=== PATIENT | male | born 1945 | race Caucasian/White ===

== ENCOUNTER → 2020-10-15 16:27 | Outpatient (BNVA) | payer OTHER, SELFPAY | PROVIDERS: Family Provider Family Medicine; PCP Family Medicine | DX: R05 Cough (principal); J40 Bronchitis, not specified as acute or chronic | CPT/HCPCS: 71046 ==

== ENCOUNTER 2020-10-15 18:44 | Emergency (ER) | payer OTHER, MEDICARE, SELFPAY ==
[2020-10-15 18:48] VITALS: BP 202/78; PULSE 88; RESP 18; TEMP 37.1; O2SAT 94; BMI 28.2
--- NOTE | 2020-10-15 23:06 | ED_ITS ---
HPI - General Adult General: Chief complaint: General Medical Stated complaint: bronch Time Seen by Provider: 10/15/20 22:59 History of Present Illness: HPI narrative: Patient is a 75-year-old male who was sent here to the ED by urgent care. Patient was diagnosed with bronchitis and a mass was seen on chest x-ray in a told him to go straight to the ED to get a CT of his chest to further evaluate mass. Patient denies any chest pain, dyspnea, fever, cough, abdominal pain, nausea/vomiting. Associated symptoms: Deny chest pain, dyspnea, headache(s), nausea, rash, palpitations or vomiting Review of Systems Const: Denies: fever(s), chills or fatigue Eyes: Denies: change in vision or eye discomfort ENMT: Denies: throat pain, odynophagia, nasal discharge or nasal congestion Card: Denies: chest pain, palpitations, edema, swelling of feet/ankles, dyspnea on exertion or orthopnea Resp: Denies: dyspnea, productive cough or non-productive cough GI: Denies: abdominal pain, nausea, vomiting, diarrhea, constipation or hematochezia : Denies: flank pain, difficulty urinating, dysuria or hematuria Musc: Denies: neck pain, back pain or extremity swelling Skin/Breast: Denies: rash or new lesions Neuro: Denies: headache(s), numbness in extremities or weakness in extremities PFS ED PFSH: Social History Smoking and tobacco status: former smoker Physical Exam Const: COMMON NORMALS: no acute distress, patient oriented x3, healthy appearing and alert GENERAL APPEARANCE: cooperative and comfortable HENMT: COMMON NORMALS: normocephalic HEAD & SCALP: normocephalic MOUTH: Normal oral and palatal mucosa present THROAT: posterior oropharynx normal and uvula midline Neck/C-Spine: COMMON NORMALS: supple GENERAL: Yes normal visual inspection Resp: COMMON NORMALS: normal respiratory effort, No retractions, No use of accessory muscles and clear to auscultation bilaterally EFFORT & INSPECTION: Yes able to speak in complete sentences, No tachypneic, No respiratory distress and No labored AUSCULTATION: clear to auscultation bilaterally Cardio: COMMON NORMALS: regular rate, regular rhythm, S1 normal heart sound present, S2 normal heart sound present, No gallops present (Cardio), No clicks present (Cardio), No murmurs present (Cardio) and Peripheral pulses 2+ throughout RATE: regular rate RHYTHM: regular rhythm HEART SOUNDS: S1 normal heart sound present and S2 normal heart sound present PERIPHERAL PULSES: Peripheral pulses 2+ throughout GI: COMMON NORMALS: Normal to inspection, nondistended, normoactive bowel sounds present, Soft to palpation, non-tender and no masses PALPATION: Yes Soft to palpation : COMMON NORMALS: Yes no CVA tenderness BLADDER/KIDNEY EXAM: Yes no CVA tenderness Back/Pelvis: COMMON NORMALS: no CVA tenderness Extremity: COMMON NORMALS: normal to inspection and no pedal edema Neuro: COMMON NORMALS: patient oriented x3 and moves all extremities SENSORIUM/ORIENTATION: Yes alert Skin: GENERAL SKIN EXAM: dry skin Course Vital Signs: Vital signs: Vital Signs Temperature 98.7 F 10/15/20 18:48 Pulse Rate 76 10/16/20 02:17 Respiratory Rate 18 10/16/20 02:17 Blood Pressure 162/73 10/16/20 02:17 Pulse Oximetry 98 10/16/20 02:17 MDM - General Adult MDM Narrative: Medical decision making narrative: Patient is a 75-year-old male who was sent here to the ED by urgent care due to mediastinal mass seen on x-ray. CT of chest was recommended while here in the ED. Patient is having no current symptoms of shortness of breath, chest pain, cough, nausea/vomiting, fevers. 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 Patient was told about CT findings and an order with case management was placed for patient to be referred to ENT for further evaluation of thyroid. Patient told case management will be contacting them in the next several days to set up an appoint with ENT doctor. Return to ED precautions given. Patient understood and agree with plan. Lab Data: Attestation: I reviewed the patient's lab results. Labs: Lab Results 10/15/20 10/15/20 10/15/20 Range/Units 23:11 23:11 23:19 WBC 8.3 (4.0-10.0) 10^3/ uL RBC 5.07 (4.1-5.3) 10^6/u L Hgb 14.3 (11.7-16.6) g/dL Hct 44.1 (42.0-52.0) % MCV 87.0 (80-94) fL MCH 28.2 (28.0-34.0) pg MCHC 32.4 (30.0-36.0) g/dL RDW 14.3 (12.1-15.1) % Plt Count 451 H (130-400) 10^3/c mm MPV 9.2 (7.4-10.4) fL Neut % (Auto) 57.7 % Lymph % (Auto) 27.2 % Jennings % (Auto) 13.9 % Eos % (Auto) 0.8 % Baso % (Auto) 0.2 % Neut # (Auto) 4.80 (1.8-7.7) 10^3/u L Lymph # (Auto) 2.3 (0.8-4.8) 10^3/u L Jennings # (Auto) 1.2 H (0.2-0.9) 10^3/u L Eos # (Auto) 0.1 (0.0-0.8) 10^3/u L Baso # (Auto) 0.0 (0.0-0.1) 10^3/u L Nucleated RBC % (a uto) 0 % Nucleated RBCs # 0.0 /100WBC Sodium 140 (136-145) mmol/L Potassium 4.0 (3.5-5.1) mmol/L Chloride 103 (98-107) mmol/L Carbon Dioxide 24 (22-29) mmol/L Anion Gap 17.0 (5-19) BUN 11 (8-23) mg/dL Creatinine 0.8 (0.7-1.2) mg/dL GFR Calculation Not Reportable Glucose 60 L (65-115) mg/dL POC Glucose 51 L (70-110) mg/dL Calculated Osmolal ity 287 (285-295) mOsm/k g Calcium 9.8 (8.5-10.5) mg/dL Total Bilirubin 0.5 (0.15-1.2) mg/dL AST 36 (0-40) U/L ALT 39 (0-41) U/L Alkaline Phosphata se 60 (40-130) IU/L C-Reactive Protein 72.6 H (0.0-4.9) mg/L Total Protein 7.0 (6.6-8.7) g/dL Albumin 3.4 L (3.5-5.2) g/dL Globulin 3.6 (1.3-4.6) g/dL Procalcitonin 0.09 (0-0.5) ng/mL Imaging Data^: CT Chest: Attestation: I personally reviewed and interpreted this imaging study as follows: Radiologist's impression: [address] [address] [address] Scan Report Signed Patient: Abiel Roach Unit #: [id number] : 1945 Age/Sex: 75 / M ADM Date: 10/15/20 Loc: ER Room/Bed: Attending Dr: Ordering Provider/Ordering MD: Diego Patel Date of Service: 10/15/20 Procedure(s): CT chest w con* [id number] Accession Number(s): [id number] Report Number: [id number] PROCEDURE INFORMATION: Exam: CT Chest With Contrast; Diagnostic Exam date and time: 10/15/2020 12:20 AM Age: 75 years old Clinical indication: Abnormal findings; Abnormal radiologic exam of lung or chest; Patient HX: Abn cxr - C/O bronchitis denies cp; Additional info: Mass seen on chest xray TECHNIQUE: Imaging protocol: Diagnostic computed tomography of the chest with intravenous contrast. Radiation optimization: All CT scans at this facility use at least one of these dose optimization techniques: automated exposure control; mA and/or kV adjustment per patient size (includes targeted exams where dose is matched to clinical indication); or iterative reconstruction. 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 There is a right lobe thyroid nodule measuring up to 3.0 x 1.8 cm. The trachea is narrowed in the mediolateral dimension as it traverses the thoracic inlet due to the substernal goiter. Lungs: There is mild bilateral lung disease characterized by patchy lower lung predominant subpleural ground-glass and reticular opacity. Pleural space: Unremarkable. No pneumothorax. No pleural effusion. Heart: Heart size is normal. There is severe coronary artery calcification. There is no pericardial effusion. Pulmonary arteries: The central pulmonary arteries are unremarkable. Aorta: There is mild aortic atherosclerotic disease. Lymph nodes: There is no mediastinal or hilar lymphadenopathy. Liver: There are scattered simple cysts in the liver. Adrenals: There is marked hypertrophy of the left adrenal gland. Bones/joints: Unremarkable. No acute fracture. Soft tissues: The extrathoracic soft tissues are unremarkable. CT/CT chest w con* [id number] IMPRESSION: 1. Narrowing of the trachea at the thoracic inlet due to a substernal goiter. 2. Mild bilateral lung disease. Commonly reported imaging features of COVID-19 pneumonia are present. Other processes such as influenza pneumonia and organizing pneumonia (as can be seen with drug toxicity and connective tissue disease), can produce a similar imaging pattern. 3. 3 cm right lobe thyroid nodule. Recommend nonemergent ultrasound follow-up. 4. Additional incidental findings above. COMMENTS: Consistent with the [employer]'s Incidental Findings Committee white paper (J Am Vesta Radiol 2015): In patients aged 35 years and older with an incidental thyroid nodule equal to or greater than 1.[address], MRI or extrathyroidal US, further evaluation with dedicated thyroid US is recommended for patients with normal life expectancy and without comorbidities. For smaller nodules without suspicious features, no further evaluation or follow up is recommended. Radiation Dose CTDIVOL = (mGy): DLP = 838.52 (mGy-cm) Dictated By: Jovany Wilcox MD Signed By: Jovany Wilcox MD Signed Date/Time: 10/16/20103 DD/ 3 Discharge Plan Discharge Patient Disposition: Home Clinical Impression: Right thyroid nodule, Thyroid goiter Condition: Stable Prescriptions: No Action Unable to Assess RF: 0 azithromycin 250 mg tablet See Rx Instructions PO .COMPLEX Qty: 6 RF: 0 albuterol sulfate [ProAir HFA] 90 mcg/actuation HFA aerosol inhaler 2 puff inhalation QID PRN (Reason: shortness of breath or wheezing) Qty: 18 RF: 0 Discharge Orders: Discharge ED (Routine); Ordered 10/16/20 Ordered By: Diego Ptael Referrals: Blayne Bolivar MD [Primary Care Provider] - Discharge Diet: Regular Discharge Activity: Resume usual activity Patient Instructions: Thyroid Goiter (ED), Thyroid Nodules (ED) Activity Restrictions/Additional Instructions: Follow-up with medical provider as directed. Case management will be contacting you in the next several days to set up an appointment with ENT doctor to further evaluate thyroid goiter and nodule. Continue taking all previously prescribed medications. Return to the ER or your medical provider if condition worsens. Please read and understand discharge instructions. If any questions, please ask. Coding Level of Care Code ED Machine Loader for Chg Fwd Exam Comprehensive
[2020-10-15 23:21] VITALS: BP 173/82; PULSE 78; RESP 18; O2SAT 97
[2020-10-15 23:23] LABS: Glucose Point of Care 51 mg/dL (70-110)
--- NOTE | 2020-10-15 23:26 | CTR_ITS ---
PROCEDURE INFORMATION: Exam: CT Chest With Contrast; Diagnostic Exam date and time: 10/15/2020 12:20 AM Age: 75 years old Clinical indication: Abnormal findings; Abnormal radiologic exam of lung or chest; Patient HX: Abn cxr - C/O bronchitis denies cp; Additional info: Mass seen on chest xray TECHNIQUE: Imaging protocol: Diagnostic computed tomography of the chest with intravenous contrast. Radiation optimization: All CT scans at this facility use at least one of these dose optimization techniques: automated exposure control; mA and/or kV adjustment per patient size (includes targeted exams where dose is matched to clinical indication); or iterative reconstruction. 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 There is a right lobe thyroid nodule measuring up to 3.0 x 1.8 cm. The trachea is narrowed in the mediolateral dimension as it traverses the thoracic inlet due to the substernal goiter. Lungs: There is mild bilateral lung disease characterized by patchy lower lung predominant subpleural ground-glass and reticular opacity. Pleural space: Unremarkable. No pneumothorax. No pleural effusion. Heart: Heart size is normal. There is severe coronary artery calcification. There is no pericardial effusion. Pulmonary arteries: The central pulmonary arteries are unremarkable. Aorta: There is mild aortic atherosclerotic disease. Lymph nodes: There is no mediastinal or hilar lymphadenopathy. Liver: There are scattered simple cysts in the liver. Adrenals: There is marked hypertrophy of the left adrenal gland. Bones/joints: Unremarkable. No acute fracture. Soft tissues: The extrathoracic soft tissues are unremarkable. CT/CT chest w con* [id number] IMPRESSION: 1. Narrowing of the trachea at the thoracic inlet due to a substernal goiter. 2. Mild bilateral lung disease. Commonly reported imaging features of COVID-19 pneumonia are present. Other processes such as influenza pneumonia and organizing pneumonia (as can be seen with drug toxicity and connective tissue disease), can produce a similar imaging pattern. 3. 3 cm right lobe thyroid nodule. Recommend nonemergent ultrasound follow-up. 4. Additional incidental findings above. COMMENTS: Consistent with the [employer]'s Incidental Findings Committee white paper (J Am Vesta Radiol 2015): In patients aged 35 years and older with an incidental thyroid nodule equal to or greater than 1.[address], MRI or extrathyroidal US, further evaluation with dedicated thyroid US is recommended for patients with normal life expectancy and without comorbidities. For smaller nodules without suspicious features, no further evaluation or follow up is recommended. Radiation Dose CTDIVOL = (mGy): DLP = 838.52 (mGy-cm)
[2020-10-15 23:37] LABS: Basophils % 0.2 %; Eosinophils # 0.1 10^3/uL (0.0-0.8); Eosinophils % 0.8 %; Hematocrit 44.1 % (42.0-52.0); Hemoglobin 14.3 g/dL (11.7-16.6); Lymphocytes # 2.3 10^3/uL (0.8-4.8); Lymphocytes % 27.2 %; Mean Corpuscular HGB Conc 32.4 g/dL (30.0-36.0); Mean Corpuscular Hemoglobin 28.2 pg (28.0-34.0); Mean Platelet Volume 9.2 fL (7.4-10.4); Monocytes # 1.2 10^3/uL (0.2-0.9); Monocytes % 13.9 %; Neutrophils % 57.7 %; Nucleated Red Blood Cells % 0 %; Platelet Count 451 10^3/cmm (130-400); Red Blood Count 5.07 10^6/uL (4.1-5.3); Red Cell Distribution Width 14.3 % (12.1-15.1); White Blood Count 8.3 10^3/uL (4.0-10.0)
[2020-10-16 00:12] LABS: Procalcitonin 0.09 ng/mL (0-0.5)
[2020-10-16 00:23] LABS: Alanine Aminotransferase 39 U/L (0-41); Albumin Level 3.4 g/dL (3.5-5.2); Alkaline Phosphatase 60 IU/L (40-130); Aspartate Amino Transferase 36 U/L (0-40); Blood Urea Nitrogen 11 mg/dL (8-23); C Reactive Protein 72.6 mg/L (0.0-4.9); Calcium 9.8 mg/dL (8.5-10.5); Carbon Dioxide 24 mmol/L (22-29); Chloride 103 mmol/L (98-107); Globulin 3.6 g/dL (1.3-4.6); Glucose 60 mg/dL (65-115); Osmolality Calculated 287 mOsm/kg (285-295); Sodium 140 mmol/L (136-145); Total Bilirubin 0.5 mg/dL (0.15-1.2)
[2020-10-16] MEDS: iohexol 300 mg/mL 100 mL Btl IV (00:34)
[2020-10-16 02:14] VITALS: BP 162/73; PULSE 76; RESP 18; O2SAT 98
[2020-10-16 02:17] VITALS: BP 162/73; PULSE 76; RESP 18; O2SAT 98
--- NOTE | 2020-10-16 12:12 | DCPLANNER ---
accredited farm manager had message to schedule a follow up appointment for patient with ENT. Case manage emailed both Jessy and Susie at [facility] General Surgery, patients information. Patients information will be printed and reviewed. Clinic will call patient with appointment information. Patient has [facility] insurance, emailed [facility] with [facility] to let her know that patient was seen in the ER and that patient needed a referral to ENT.
--- NOTE | 2020-11-10 08:33 | DCPLANNER ---
aviation program manager was notified that the ENT clinic can not see [facility] patients at this time. aviation program manager tried to contact patient about this and was unable to reach patient at this time.
== END 2020-10-16 02:19 | disposition home or self-care (01) ==
PROVIDERS: Family Medicine; Emergency Provider Physician Assistant; PCP Family Medicine
DX: E04.9 Nontoxic goiter, unspecified (principal); E04.1 Nontoxic single thyroid nodule; Z87.891 Personal history of nicotine dependence
CPT/HCPCS: 12345; 36416; 71260; 80053; 82962; 84145; 85025; 86140; 99282; 99283; Q9967

== ENCOUNTER → 2021-01-19 12:15 | Outpatient (BNVA) | payer OTHER, MEDICARE, SELFPAY | PROVIDERS: PCP Family Medicine; Visit Provider Specialist | DX: Z20.828 Contact with and (suspected) exposure to other viral communicable diseases (principal) | CPT/HCPCS: 87635 ==

== ENCOUNTER 2021-04-17 10:18 | Outpatient (CLI) | payer OTHER, SELFPAY ==
--- NOTE | 2021-04-17 10:20 | CT_ITS ---
WS: [id number] CT ABDOMEN PELVIS TECHNIQUE: Noncontrast CT of the abdomen and contrast-enhanced CT of the abdomen and pelvis with yonathan nal and sagittal reformatted images. CLINICAL INFORMATION: FOLLOW UP LEFT ADDRENAL ENLARGEMENT COMPARISON: CT March 2017 DLP: 2252.[address] scans at [facility] use at least one of these dose optimization techniques: automat ed exposure control; mA and/or kV adjustment per patient size (includes targeted exams where dose is matched to clinical indication); or iterative reconstruction. FINDINGS: Diffuse fatty infiltration liver. Again seen are multiple hepatic cysts similar in appearance to 2017 . Mild hepatomegaly. Normal portal vein and splenic vein. Mild fatty atrophy of the pancreas. Slight nodularity right adrenal gland is unchanged. Again seen is the left adrenal lesion measuring 2.4 cm n ot significantly changed in size compared to previous. Absolute washout is 74.8% consistent with adrenal adenoma. Relative washout is 70.4% also consistent with adrenal adenoma. Normal GE junction. Lung bases are well aerated. Normal renal parenchymal enhancement. No hydronephro sis. Aortic calcification. Normal caliber abdominal aorta. Enlarged prostate measuring 4.6 x 6.5 CM. Sigmoid diverticulosis. No evidence of acute diverticulitis . No evidence of small or large bowel obstruction. Incidental tiny fat-containing umbilical hernia. CT/CT abdomen pelvis wo/w [id number] IMPRESSION: 1. 2.4 cm low-attenuation left adrenal lesion is unchanged with washout calcul ations compatible with adrenal adenoma. 2. Diffuse fatty infiltration of the liver with mild hepatomegaly and several hepatic cysts unchanged. 3. Enlarged calcified prostate measuring 4.6 x 6.5 CM. Recommend correlation P SA. 4. Diverticulosis. No evidence of acute diverticulitis. 5. No evidence of small or large bowel obstruction. 6. Normal caliber abdominal aorta.
[2021-04-17 11:04] LABS: Blood Urea Nitrogen 15 mg/dL (8-23)
[2021-04-17] MEDS: iohexol 300 mg/mL 100 mL Btl IV (11:19)
== END 2021-04-17 10:19 | disposition home or self-care (01) ==
LOC: RADWPI 10:18
PROVIDERS: PCP Emergency Medicine Emergency Medical Services; Visit Provider Emergency Medicine Emergency Medical Services
DX: E27.8 Other specified disorders of adrenal gland (principal); K57.90 Diverticulosis of intestine, part unspecified, without perforation or abscess without bleeding; N40.0 Benign prostatic hyperplasia without lower urinary tract symptoms; K76.0 Fatty (change of) liver, not elsewhere classified
CPT/HCPCS: 74178; 82565; 84520; Q9967

== ENCOUNTER 2021-05-18 08:11 | Outpatient (CLI) | payer OTHER, SELFPAY ==
--- NOTE | 2021-05-18 08:21 | CT_ITS ---
WS: [id number] CT NECK TECHNIQUE: Contrast-enhanced CT of the neck with coronal and sagittal reformatted images. CLINICAL INFORMATION: NONTOXIC MULTINODULAR GOITER COMPARISON: None. DLP: 1441.[address] scans at [facility] use at least one of these dose optimization techniques: automat ed exposure control; mA and/or kV adjustment per patient size (includes targeted exams where dose is matched to clinical indication); or iterative reconstruction. FINDINGS: Heterogeneous multinodular enlarged thyroid worse involving the right thyroid lobe. Heterogeneously e nhancing nodules largest in the lower pole right thyroid measuring approximately 6.8 x 4.2 cm extendi ng into the upper mediastinum. Mastoid air cells well aerated. Paranasal sinuses are well aerated. Parotid glands are normal. Normal submandibular glands. Normal parapharyngeal fat. No cervical lymphadenopathy. Moderate spondylitic changes cervical spine with anterior hypertrophic changes and ankylosis. Disc os teophyte complexes throughout the cervical spine. Slight anterolisthesis C3 on C4. Lung apices are we ll aerated. CT/CT neck w con* [id number] IMPRESSION: 1. Multinodular enlarged heterogeneous thyroid with lobulated right thyroid lo be. This is stable in appearance since the chest CT October 16, 2020 2. Largest nodule in the right inferior pole extending into the upper mediasti num measuring 4.2 x 4.5 CM. 3. No cervical lymphadenopathy. 4. Salivary glands are normal in appearance. 5. No evidence of supraglottic or glottic mass. 6. Paranasal sinuses and mastoid air cells are well aerated. 7. Moderate spondylitic changes cervical spine with ankylosis and hypertrophic changes.
[2021-05-18] MEDS: iohexol 300 mg/mL 100 mL Btl IV (08:37)
== END 2021-05-18 08:12 | disposition home or self-care (01) ==
PROVIDERS: PCP Emergency Medicine Emergency Medical Services; Visit Provider Specialist
DX: E04.2 Nontoxic multinodular goiter (principal); J39.8 Other specified diseases of upper respiratory tract
CPT/HCPCS: 70491; Q9967

== ENCOUNTER 2023-01-10 14:40 | Outpatient (CLI) | payer OTHER, SELFPAY ==
--- NOTE | 2023-01-10 14:59 | CT_ITS ---
WS: [id number] CT NECK TECHNIQUE: Contrast-enhanced CT of the neck with coronal and sagittal reformatted images. CLINICAL INFORMATION: NONTOXIC MULTINODULAR GOITER COMPARISON: CT neck May 18, 2021 DLP: 296.[address] scans at [facility] use at least one of these dose optimization techniques: automated e xposure control; mA and/or kV adjustment per patient size (includes targeted exams where dose is matc hed to clinical indication); or iterative reconstruction. FINDINGS: Heterogeneous multinodular enlarged thyroid worse involving the right thyroid lobe similar to 2020. H eterogeneously enhancing multinodular RIGHT lobe measuring approximately 4.3 x 4.5 x 7.2 cm extending into the upper mediastinum. This measures a few millimeters larger today. This appears slightly prog ressed compared to previous with mass effect on the trachea RIGHT to LEFT at the thoracic inlet simil ar in appearance. LEFT thyroid lobe appears stable. Incidental aberrant RIGHT subclavian artery. Normal posterior nasopharynx. Normal parapharyngeal fat. No evidence of supraglottic or glottic mass. Mastoid air cells well aerated. Paranasal sinuses are well aerated. Parotid glands are normal. Jennifer l submandibular glands. No cervical lymphadenopathy. Moderate spondylitic changes cervical spine with anterior hypertrophic changes and ankylosis. Disc os teophyte complexes throughout the cervical spine. Slight anterolisthesis C3 on C4. Lung apices are we ll aerated. CT/CT neck w con* [id number] IMPRESSION: 1. Multinodular enlarged heterogeneous thyroid with lobulated right thyroid lob e. This is slightly progressed compared to previous with stable RIGHT to LEFT m ass effect on the trachea at the thoracic inlet 3. No cervical lymphadenopathy. 4. Salivary glands are normal in appearance. 5. No evidence of supraglottic or glottic mass 6. Incidental aberrant RIGHT subclavian artery.
[2023-01-10] MEDS: iohexol 350 mg/mL 500 mL Btl (per mL) IV (15:19)
[2023-01-10 15:43] LABS: Blood Urea Nitrogen 13 mg/dL (8-23)
== END 2023-01-10 14:41 | disposition home or self-care (01) ==
PROVIDERS: PCP Emergency Medicine Emergency Medical Services; Visit Provider Specialist
DX: E04.2 Nontoxic multinodular goiter (principal); Q27.8 Other specified congenital malformations of peripheral vascular system
CPT/HCPCS: 70491; 82565; 84520; Q9967

== ENCOUNTER → 2023-10-31 08:39 | Outpatient (BNVA) | payer OTHER, SELFPAY | PROVIDERS: PCP Emergency Medicine Emergency Medical Services; Visit Provider Podiatrist Foot & Ankle Surgery | DX: E11.42 Type 2 diabetes mellitus with diabetic polyneuropathy (principal); B35.1 Tinea unguium; M25.471 Effusion, right ankle; M25.472 Effusion, left ankle | CPT/HCPCS: 11721; 99203 ==

== ENCOUNTER → 2024-01-26 09:36 | Outpatient (BNVA) | payer OTHER, SELFPAY | PROVIDERS: PCP Emergency Medicine Emergency Medical Services; Visit Provider Podiatrist Foot & Ankle Surgery | DX: B35.1 Tinea unguium (principal); E11.42 Type 2 diabetes mellitus with diabetic polyneuropathy; M25.471 Effusion, right ankle; M25.472 Effusion, left ankle | CPT/HCPCS: 11721 ==

== ENCOUNTER → 2024-04-05 10:34 | Outpatient (BNVA) | payer OTHER, SELFPAY | PROVIDERS: PCP Nurse Practitioner Family; Visit Provider Podiatrist Foot & Ankle Surgery | DX: B35.1 Tinea unguium (principal); E11.42 Type 2 diabetes mellitus with diabetic polyneuropathy; M25.471 Effusion, right ankle; M25.472 Effusion, left ankle | CPT/HCPCS: 11721 ==

== ENCOUNTER → 2024-06-01 13:20 | Outpatient (BNVA) | payer OTHER, SELFPAY | PROVIDERS: PCP Nurse Practitioner Family; Referring Provider Nurse Practitioner Family; Visit Provider Internal Medicine | DX: I48.91 Unspecified atrial fibrillation (principal); I45.9 Conduction disorder, unspecified; R07.9 Chest pain, unspecified; I10 Essential (primary) hypertension; E11.9 Type 2 diabetes mellitus without complications; Z87.891 Personal history of nicotine dependence | CPT/HCPCS: 93005; 99204 ==

== ENCOUNTER → 2024-06-07 10:05 | Outpatient (BNVA) | payer OTHER, SELFPAY | PROVIDERS: PCP Nurse Practitioner Family; Visit Provider Podiatrist Foot & Ankle Surgery | DX: B35.1 Tinea unguium (principal); E11.42 Type 2 diabetes mellitus with diabetic polyneuropathy; M25.471 Effusion, right ankle; M25.472 Effusion, left ankle; Z79.4 Long term (current) use of insulin | CPT/HCPCS: 11721 ==

== ENCOUNTER → 2024-08-09 10:42 | Outpatient (BNVA) | payer OTHER, SELFPAY | PROVIDERS: PCP Nurse Practitioner Family; Visit Provider Podiatrist Foot & Ankle Surgery | DX: B35.1 Tinea unguium (principal); E11.42 Type 2 diabetes mellitus with diabetic polyneuropathy; M25.471 Effusion, right ankle; M25.472 Effusion, left ankle; Z79.4 Long term (current) use of insulin | CPT/HCPCS: 11721 ==

== ENCOUNTER → 2024-10-21 10:45 | Outpatient (BNVA) | payer OTHER, SELFPAY | PROVIDERS: PCP Nurse Practitioner Family; Visit Provider Podiatrist Foot & Ankle Surgery | DX: B35.1 Tinea unguium (principal); E11.42 Type 2 diabetes mellitus with diabetic polyneuropathy; M25.471 Effusion, right ankle; M25.472 Effusion, left ankle; Z79.4 Long term (current) use of insulin | CPT/HCPCS: 11721 ==

== ENCOUNTER → 2024-12-06 15:00 | Outpatient (BNVA) | payer OTHER, SELFPAY | PROVIDERS: PCP Nurse Practitioner Family; Visit Provider Internal Medicine | DX: I48.91 Unspecified atrial fibrillation (principal); I10 Essential (primary) hypertension; E11.9 Type 2 diabetes mellitus without complications; Z79.01 Long term (current) use of anticoagulants; Z87.891 Personal history of nicotine dependence; Z79.4 Long term (current) use of insulin | CPT/HCPCS: 99213 ==

== ENCOUNTER → 2024-12-23 11:03 | Outpatient (BNVA) | payer OTHER, SELFPAY | PROVIDERS: PCP Nurse Practitioner Family; Visit Provider Podiatrist Foot & Ankle Surgery | DX: E11.42 Type 2 diabetes mellitus with diabetic polyneuropathy (principal); B35.1 Tinea unguium; I73.9 Peripheral vascular disease, unspecified; E11.8 Type 2 diabetes mellitus with unspecified complications; M25.471 Effusion, right ankle; M25.472 Effusion, left ankle; Z79.4 Long term (current) use of insulin | CPT/HCPCS: 11721; 99213 ==

== ENCOUNTER 2024-12-26 17:25 | Inpatient (IN) | payer OTHER, MEDICARE, SELFPAY ==
[2024-12-26] VITALS (8 sets, daily range): BP systolic 139–177; BP diastolic 71–105; PULSE 97–118; RESP 17–30; TEMP 36.9–38.2; O2SAT 90–97; BMI 28.5
--- NOTE | 2024-12-26 17:31 | XRR_ITS ---
PROCEDURE INFORMATION: Exam: XR Chest Exam date and time: 12/26/2024 5:54 PM Age: 79 years old Clinical indication: Other: Weakness TECHNIQUE: Imaging protocol: Radiologic exam of the chest. Views: 1 view. COMPARISON: CT chest w con* [id number] 10/16/2020 12:24 AM FINDINGS: Lungs: Unremarkable. No consolidation. Pleural spaces: Unremarkable. No pleural effusion. No pneumothorax. Heart/Mediastinum: Unremarkable. No cardiomegaly. Vasculature: Atherosclerotic aortic calcifications. Diaphragm: Asymmetric elevation of the left hemidiaphragm. Bones/joints: Unremarkable. XR/XR chest 1V portable [id number] IMPRESSION: No acute cardiopulmonary findings.
[2024-12-26 17:42] LABS: ABG PH Result 7.43 (7.35-7.45); Alveolar-Arterial Oxygen Gradi 4.9 mmHg (5-10); Arterial Blood Gas Hematocrit 42.1 % (42-52); Base Excess ABG 0.6 mmol/L (-2.0-2.0); Blood Gas Allen Test Pos; Blood Gas Operator Identificat WALCI; Blood Gas Sample Site Radial, left; Blood Gas Sample Type Arterial; HCO3 ABG 24.6 mmol/L (22-26); HGB O2 Sat 91.9 % (95-100); Ionized Calcium Level - ABG 1.3 mmol/L (1.1-1.4); Methemoglobin 1.1 % (0.4-1.5); Oxygen Device ROOM AIR; Oxygen Saturation ABG 93.9; PO2 ABG 65.5 mmHg (80.0-100.0); PO2 FiO2 Ratio Arterial Blood 311; Potassium Level - ABG 4.3 mmol/L (3.5-5.0); Total Hemoglobin 13.8 g/dL (14-18)
--- NOTE | 2024-12-26 17:49 | ECG_ITS ---
[facility] 2024-12[facility]26 Pat Name: Abiel Roach Department: Room: Gender: Male Administrative Office Manager: : 1945 Requested By: Anya Apple Order Number: [id number] Gonzales MD: SYLVESTER FRIEND Measurements Intervals Mcdaniel Rate: 111 P: 0 SD: 0 QRS: 32 QRSD: 105 T: 70 QT: 314 QTc: 428 Interpretive Statements ATRIAL FIBRILLATION WITH RAPID VENTRICULAR RESPONSE INDETERMINATE AXIS LOW QRS VOLTAGE IN EXTREMITY LEADS [QRS DEFLECTION < 0.5 mV IN LIMB LEADS] ABNORMAL RHYTHM ECG Compared to ECG 06/01/2024 13:27:49 Indeterminate axis now present Low QRS voltage now present Intraventricular conduction delay no longer present Electronically Signed On 12-27-2024 18:08:20 CDT by SYLVESTER FRIEND [email or web address]
[2024-12-26 18:09] LABS: Basophils % 0.4 %; Eosinophils # 0.1 10^3/uL (0.0-0.8); Eosinophils % 0.8 %; Hematocrit 42.1 % (37-53); Lymphocytes # 0.5 10^3/uL (0.8-4.8); Lymphocytes % 4.7 %; Mean Corpuscular Hemoglobin 28.8 pg (27-33); Mean Corpuscular Volume 87.2 fl (82-101); Mean Platelet Volume 9.5 fL (7.4-10.4); Monocytes # 1.1 10^3/uL (0.2-0.9); Monocytes % 9.4 %; Neutrophils # 9.58 10^3/uL (1.8-7.7); Neutrophils % 84.4 %; Nucleated Red Blood Cells % 0 %; Platelet Count 276 10^3/cmm (157-399); Red Blood Count 4.83 10^6/uL (3.85-5.65); Red Cell Distribution Width 14.5 % (12.1-15.1); White Blood Count 11.34 10^3/uL (3.29-11.43)
[2024-12-26 18:27] LABS: Lactic Sepsis W/Reflex 1.6 mmol/L (0.5-2.2)
[2024-12-26 18:28] LABS: Troponin(5th) Baseline 48 ng/L (0-15)
[2024-12-26 18:38] LABS: NT Pro B Type Natriuretic Pept 879 pg/mL (0-450); Procalcitonin 0.32 ng/mL (0-0.5)
[2024-12-26 18:49] LABS: Alanine Aminotransferase 20 U/L (0-41); Albumin Level 4.3 g/dL (3.5-5.2); Alkaline Phosphatase 64 U/L (40-130); Blood Urea Nitrogen 28 mg/dL (8-23); C Reactive Protein 70.1 mg/L (0.0-4.9); Calcium 9.9 mg/dL (8.5-10.5); Carbon Dioxide 22 mmol/L (22-29); Chloride 96 mmol/L (98-107); Creatinine Clr Calc Pharmacy 51.2337; Globulin 2.3 g/dL (1.3-4.6); Glucose 173 mg/dL (65-115); Osmolality Calculated 284 mOsm/kg (285-295); Sodium 132 mmol/L (136-145); Total Bilirubin 0.6 mg/dL (0.15-1.2); Total Protein 6.6 g/dL (6.6-8.7)
[2024-12-26 19:03] LABS: Anion Gap 18.9 (5-19); Aspartate Amino Transferase 29 U/L (0-40); Creatine Phosphokinase 853 U/L (39-308); Potassium 4.9 mmol/L (3.5-5.1)
[2024-12-26 19:07] LABS: Influenza A NEGATIVE (Negative); Influenza B NEGATIVE (Negative); Respiratory Syncytial Virus Ce NEGATIVE (Negative)
[2024-12-26 19:14] LABS: SARS-CoV-2 PCR Positive (Negative)
[2024-12-26] MEDS: sodium chloride 0.9% 1,000 ML 999 ML IV (19:15)
[2024-12-26 19:16] LABS: Bilirubin Urine Negative (Negative); Blood Urine 2+ (Negative); Glucose Urine UA Negative (Normal); Ketones Urine 1+ (Negative); Leukocyte Esterase Urine Negative (Negative); Nitrate Urine Negative (Negative); Protein Urine 3+ (Negative); Specific Gravity, Urine 1.016 (1.005-1.030); Urine Appearance Clear (CLEAR); Urine Color Yellow (Yellow); Urobilinogen Urine 0.2 mg/dL (Negative)
--- NOTE | 2024-12-26 19:17 | W.ED.WEAKNES ---
HPI - Weakness General: Chief complaint: Weakness Stated complaint: weakness; fall Time Seen by Provider: 12/26/24 17:27 History of Present Illness: 79-year-old man with a history of hypertension and diabetes who presents to the emergency room with weakness and a fall. He is had some cough. Generalized weakness with no focal deficits. Apparently he fell down. He fell backwards. He has no pain at this time. Did not hit his head. He is on Eliquis. Review of Systems Narrative: Constitutional symptoms: Negative except as documented in HPI. Skin symptoms: Negative except as documented in HPI. Eye symptoms: Negative except as documented in HPI. ENMT symptoms: Negative except as documented in HPI. Respiratory symptoms: Negative except as documented in HPI. Cardiovascular symptoms: Negative except as documented in HPI. Gastrointestinal symptoms: Negative except as documented in HPI. Genitourinary symptoms: Negative except as documented in HPI. Musculoskeletal symptoms: Negative except as documented in HPI. Neurologic symptoms: Negative except as documented in HPI. Psychiatric symptoms: Negative except as documented in HPI. Endocrine symptoms: Negative except as documented in HPI. PFS ED PFSH: Medical History Hypertension Diabetes mellitus Social History Smoking and tobacco/nicotine status: former use of tobacco/nicotine Physical Exam Narrative: EXAM NARRATIVE: General: Alert, no acute distress. Skin: Warm, dry. Head: Normocephalic, atraumatic. Neck: Supple, trachea midline. Eye: Extraocular movements are intact. Ears, nose, mouth and throat: Tacky oral mucosa Cardiovascular: Regular, Normal peripheral perfusion. Respiratory: Lungs are clear to auscultation, respirations are non-labored, breath sounds are equal, Symmetrical chest wall expansion. Gastrointestinal: Soft, Nontender, Non distended Musculoskeletal: Normal ROM, no deformity. Neurological: Alert and oriented, No focal neurological deficit observed. Psychiatric: Cooperative, appropriate mood & affect. Course Vital Signs: Vital signs: Vital Signs Temperature 98.9 F 12/26/24 17:28 Pulse Rate 97 12/26/24 19:16 Respiratory Rate 26 H 12/26/24 19:16 Blood Pressure 139/105 12/26/24 19:16 Pulse Oximetry 91 12/26/24 19:16 Oxygen Delivery Me thod Room Air 12/26/24 19:16 MDM - Weakness Medical Decision Making Medical decision making: Differential diagnosis for patient presenting with generalized weakness including but not limited to and based on the above HPI, review of systems and physical exam: Sepsis. Dehydration. Renal failure. Electrolyte abnormalities. Anemia. Congestive heart failure. Hypotension. Coronary syndrome. Hepatitis. Cirrhosis. Infections such as pneumonia, urinary tract infection, Tick bourne illness, Cellulitis, Viral infections including influenza and Covid-19. Workup: labwork and lab/exam driven imaging ordered to evaluate, rule in and rule out above pathologies. Chest x-ray: No acute process. No infiltrate. No pneumothorax. This was reviewed and interpreted by myself the emergency room physician. I also reviewed the radiology report. Lab Review: Laboratory results were reviewed and interpreted by myself the emergency room physician. No leukocytosis. No anemia. Patient is COVID-positive. He also has some renal insufficiency. Also some rhabdomyolysis with a CK of over 800. I reviewed the patient's medical record. Reexamination: Patient remained stable. No increased work of breathing. No altered mental status. No focal motor deficits. Assessment and plan: COVID-19 Dehydration Acute renal insufficiency Rhabdomyolysis Weakness Fall ?Normal saline bolus in the emergency room -I discussed the patient with the hospitalist on-call who is admitting the patient. - Discussed findings and plan with patient. Answered any questions. - All laboratory values were reviewed and interpreted personally by myself, the ER physician - All imaging was reviewed and interpreted personally by myself, the ER physician. - Evaluation and treatment of this problem were appropriate in the emergency setting Lab Data 12/26/24 17:43 12/26/24 17:43 Radiology Impressions Chest X-Ray 12/26/24 17:31 IMPRESSION: No acute cardiopulmonary findings. Laboratory Results WBC 11.34 10^3/uL (3.29-11.43) 12/26/24 17:43 RBC 4.83 10^6/uL (3.85-5.65) 12/26/24 17:43 Hgb 13.90 g/dL (11.27-16.99) 12/26/24 17:43 Hct 42.1 % (37-53) 12/26/24 17:43 MCV 87.2 fl (82-101) 12/26/24 17:43 MCH 28.8 pg (27-33) 12/26/24 17:43 MCHC 33.0 g/dL (30-55) 12/26/24 17:43 RDW 14.5 % (12.1-15.1) 12/26/24 17:43 Plt Count 276 10^3/cmm (157-399) 12/26/24 17:43 MPV 9.5 fL (7.4-10.4) 12/26/24 17:43 Neut % (Auto) 84.4 % 12/26/24 17:43 Lymph % (Auto) 4.7 % 12/26/24 17:43 Bureau % (Auto) 9.4 % 12/26/24 17:43 Eos % (Auto) 0.8 % 12/26/24 17:43 Baso % (Auto) 0.4 % 12/26/24 17:43 Neut # (Auto) 9.58 10^3/uL (1.8-7.7) H 12/26/24 17:43 Lymph # (Auto) 0.5 10^3/uL (0.8-4.8) L 12/26/24 17:43 Bureau # (Auto) 1.1 10^3/uL (0.2-0.9) H 12/26/24 17:43 Eos # (Auto) 0.1 10^3/uL (0.0-0.8) 12/26/24 17:43 Baso # (Auto) 0.0 10^3/uL (0.0-0.1) 12/26/24 17:43 Nucleated RBC % (auto) 0 % 12/26/24 17:43 Nucleated RBCs # 0.0 /100WBC 12/26/24 17:43 Specimen Type Arterial 12/26/24 17:31 Sample Site Radial, left 12/26/24 17:31 ABG pH 7.43 (7.35-7.45) 12/26/24 17:31 ABG pCO2 37.0 mmHg (35-45) 12/26/24 17:31 ABG pO2 65.5 mmHg (80.0-100.0) L 12/26/24 17:31 ABG PO2/FiO2 Ratio 311 12/26/24 17:31 ABG HCO3 24.6 mmol/L (22-26) 12/26/24 17:31 ABG O2 Saturation 93.9 12/26/24 17:31 ABG Base Excess 0.6 mmol/L (-2.0-2.0) 12/26/24 17:31 Berto Test Pos 12/26/24 17:31 A-a O2 Gradient 4.9 mmHg (5-10) L 12/26/24 17:31 Hematocrit 42.1 % (42-52) 12/26/24 17:31 Hgb O2 Saturation 91.9 % (95-100) L 12/26/24 17:31 Carboxyhemoglobin 1.0 %THgb (0.4-20.1) 12/26/24 17:31 Methemoglobin 1.1 % (0.4-1.5) 12/26/24 17:31 Total Hemoglobin 13.8 g/dL (14-18) L 12/26/24 17:31 Sodium 135.0 mmol/L (131-143) 12/26/24 17:31 Potassium 4.3 mmol/L (3.5-5.0) 12/26/24 17:31 Glucose 178.0 mg/dL (70-115) H 12/26/24 17:31 Ionized Calcium 1.3 mmol/L (1.1-1.4) 12/26/24 17:31 O2 Delivery Device Room air 12/26/24 17:31 FiO2 21.0 % 12/26/24 17:31 Repair Miller ID Michael 12/26/24 17:31 Sodium 132 mmol/L (136-145) L 12/26/24 17:43 Potassium 4.9 mmol/L (3.5-5.1) 12/26/24 17:43 Chloride 96 mmol/L (98-107) L 12/26/24 17:43 Carbon Dioxide 22 mmol/L (22-29) 12/26/24 17:43 Anion Gap 18.9 (5-19) 12/26/24 17:43 BUN 28 mg/dL (8-23) H 12/26/24 17:43 Creatinine 1.4 mg/dL (0.7-1.2) H 12/26/24 17:43 GFR Calculation Not Reportable 12/26/24 17:43 Glucose 173 mg/dL (65-115) H 12/26/24 17:43 Calculated Osmolality 284 mOsm/kg (285-295) L 12/26/24 17:43 Lactic Acid 1.6 mmol/L (0.5-2.2) 12/26/24 17:43 Calcium 9.9 mg/dL (8.5-10.5) 12/26/24 17:43 Total Bilirubin 0.6 mg/dL (0.15-1.2) 12/26/24 17:43 AST 29 U/L (0-40) 12/26/24 17:43 ALT 20 U/L (0-41) 12/26/24 17:43 Alkaline Phosphatase 64 U/L (40-130) 12/26/24 17:43 Creatine Kinase 853 U/L (39-308) H* 12/26/24 17:43 Troponin T Baseline 48 ng/L (0-15) H 12/26/24 17:43 C-Reactive Protein 70.1 mg/L (0.0-4.9) H 12/26/24 17:43 NT-Pro-B Natriuret Pep 879 pg/mL (0-450) H 12/26/24 17:43 Total Protein 6.6 g/dL (6.6-8.7) 12/26/24 17:43 Albumin 4.3 g/dL (3.5-5.2) 12/26/24 17:43 Globulin 2.3 g/dL (1.3-4.6) 12/26/24 17:43 Procalcitonin 0.32 ng/mL (0-0.5) 12/26/24 17:43 Amorphous Sediment Not Reportable 12/26/24 19:08 Influenza A (PCR) Negative (Negative) 12/26/24 18:16 Influenza Type B (PCR) Negative (Negative) 12/26/24 18:16 RSV (PCR) Negative (Negative) 12/26/24 18:16 SARS-CoV-2 (PCR) Positive (Negative) A 12/26/24 18:16 XR interpretation done by ED provider, pending radiology final review Discharge Plan Discharge Patient Disposition: Placed in Observation Clinical Impression: COVID-19, Rhabdomyolysis, Dehydration, Renal failure, Generalized weakness, Falls Coding Level of Care Code ED Janitor Cleaner for g Fwd Related Data Home Medications ?Medication ?Instructions ?Recorded ?Confirmed ascorbic acid (vitamin C) 1,000 mg 1 g PO DAILY 06/01/24 12/23/24 tablet cholecalciferol (vitamin D3) 50 50 mcg PO DAILY 06/01/24 12/23/24 mcg (2,000 unit) capsule diltiazem HCl 180 mg capsule,24 180 mg PO DAILY 06/01/24 12/23/24 hr,extended release furosemide 20 mg tablet (Lasix) 20 mg PO DAILY 06/01/24 12/23/24 gabapentin 100 mg capsule 100 mg PO BID 06/01/24 12/23/24 insulin glargine 100 unit/mL (3 16 unit SUBCUT QAM 06/01/24 12/23/24 mL) subcutaneous pen potassium chloride 20 mEq 20 meq PO DAILY 06/01/24 12/23/24 tablet,extended release(part/cryst) tamsulosin 0.4 mg capsule (Flomax) 0.4 mg PO DAILY 06/01/24 12/23/24 losartan 100 mg tablet 100 mg PO DAILY 06/25/24 12/23/24 Previous Rx's ?Medication ?Instructions ?Recorded albuterol sulfate 90 mcg/actuation 2 puff inhalation QID PRN 10/15/20 aerosol inhaler (ProAir HFA) shortness of breath or wheezing #18 grams Diabetic Shoes with insoles #1 ea 10/31/23 amlodipine 10 mg tablet 10 mg PO DAILY #90 tabs 07/19/24 apixaban 5 mg tablet (Eliquis) 2.5 mg (1/2 x 5 mg) PO BID #180 09/13/24 tabs Allergies Allergy/AdvReac Type Severity Reaction Status Date / Time Penicillins Allergy ALGY-Hives Verified 12/23/24 11:12 Sulfa (Sulfonamide Allergy Unknown Verified 12/23/24 11:12 Antibiotics)
[2024-12-26 19:24] LABS: Bacteria Urine None Seen /hpf; Hyaline Casts Urine 8.26 /lpf; RBC Urine 0-2 /hpf (0-2); Squamous Epithelial Cell Urine 0-5 /hpf (0-5); Universal Test for UA Present (0); WBC Urine 0-5 /hpf (0-5)
[2024-12-26 19:54] LABS: Troponin 5 2HR 40.35 ng/L (0-15)
[2024-12-26 19:57] LABS: Troponin 5 2HR Delta -7.65 ABS# (0-10)
--- NOTE | 2024-12-26 21:28 | PM.HP ---
Providers/Chief Complaint Admitting Physician: Jose E Colvin MD Primary Care Provider: Kelly Sheppard APRN Chief Complaint: weakness; fall History of Present Illness Abiel Roach is a 79 year old male with established history of hypertension, atrial fibrillation chronic anticoagulation, follows up with cardiology, presented with generalized weakness and fatigue. Patient lives alone, cooks for himself, does not use oxygen at home, has been sick for last few days today got extremely weak and lethargic fell on the floor, stayed on the floor for about 90 minutes, family checked on him and called EMS, patient was awake and alert, extremely lethargic and fatigue, in the ER workup consistent with COVID-19 pneumonia PHAM, he has received IV fluids, Currently requiring 2 L of oxygen, awake and alert NIH 0 GCS 15 Meet sepsis criteria with fever tachypnea tachycardia not a good candidate for septic bolus considering signs of fluid overload Sepsis related to COVID-19 procalcitonin unremarkable to warrant antibiotics, requested CT chest Patient has history of paratracheal fullness: Has followed up with ENT at [facility] status post biopsy, he is not sure about biopsy report: Will request records, patient is stating that it was not malignant His ENT surgeon name is Dr Gibson Review of Systems Const: Reports: fever(s) and chills Eyes: Denies: change in vision ENMT: Denies: throat pain Card: Reports: swelling of feet/ankles and dyspnea on exertion Resp: Reports: dyspnea GI: Reports: nausea Neuro: Reports: headache(s) Medications/Allergies Home Medications ?Medication ?Instructions ?Recorded ?Confirmed ?Last Taken ?Type albuterol sulfate 90 mcg/actuation 2 puff inhalation QID PRN 10/15/20 12/26/24 Unknown Rx aerosol inhaler (ProAir HFA) shortness of breath or wheezing #18 grams Diabetic Shoes with insoles #1 ea 10/31/23 12/26/24 Unknown Rx ascorbic acid (vitamin C) 1,000 mg 1 g PO DAILY 06/01/24 12/26/24 Unknown History tablet cholecalciferol (vitamin D3) 50 50 mcg PO DAILY 06/01/24 12/26/24 Unknown History mcg (2,000 unit) capsule diltiazem HCl 180 mg capsule,24 180 mg PO DAILY 06/01/24 12/26/24 Unknown History hr,extended release furosemide 20 mg tablet (Lasix) 20 mg PO DAILY 06/01/24 12/26/24 Unknown History gabapentin 100 mg capsule 100 mg PO BID 06/01/24 12/26/24 Unknown History insulin glargine 100 unit/mL (3 16 unit SUBCUT QAM 06/01/24 12/26/24 Unknown History mL) subcutaneous pen potassium chloride 20 mEq 20 meq PO DAILY 06/01/24 12/26/24 Unknown History tablet,extended release(part/cryst) tamsulosin 0.4 mg capsule (Flomax) 0.4 mg PO DAILY 06/01/24 12/26/24 Unknown History losartan 100 mg tablet 100 mg PO DAILY 06/25/24 12/26/24 Unknown History amlodipine 10 mg tablet 10 mg PO DAILY #90 tabs 07/19/24 12/26/24 Unknown Rx apixaban 5 mg tablet (Eliquis) 2.5 mg (1/2 x 5 mg) PO BID #180 09/13/24 12/26/24 Unknown Rx tabs Allergies Allergy/AdvReac Type Severity Reaction Status Date / Time hydrochlorothiazide Allergy ALGY-Rash Verified 12/26/24 21:07 metoprolol Allergy ALGY-Rash Verified 12/26/24 21:07 Penicillins Allergy ALGY-Hives Verified 12/26/24 19:45 Sulfa (Sulfonamide Allergy Unknown Verified 12/26/24 19:45 Antibiotics) PFSH Acute PFSH: Medical History (Updated 12/26/24 @ 22:21 by Jose E Colvin MD) Renal failure Hypertension Diabetes mellitus Social History Smoking and tobacco/nicotine status: former use of tobacco/nicotine Vitals/I&O/Wt Last Vital Signs Temp 100.7 F H 12/26/24 20:55 Pulse 118 H 12/26/24 20:55 Resp 30 H 12/26/24 20:55 BP 177/93 12/26/24 20:55 Pulse Ox 95 12/26/24 20:55 O2 Del Method Nasal Cannula 12/26/24 20:58 O2 Flow Rate 2 12/26/24 20:55 12/26/24 12/26/24 12/26/24 06:59 14:59 22:59 Intake Total 1000 / 1000 Balance 1000 / 1000 Weight last 48 hrs Weight 96.303 kg Weight 95.254 kg Physical Exam Narrative: Patient lying supine Currently on 2 L nasal cannula Low-grade fever Tachypnea tachycardia GCS 15 NIH 0 Low extremity trace edema Abdomen soft Bilateral breath sounds with rhonchi Nasal tone of his voice with sinusitis Endorsing fatigue and lethargy Able to answer all my question AOx4, family at the bedside Data 12/26/24 17:43 12/26/24 17:43 Micro: Microbiology 12/26/24 17:50 Blood Culture - Preliminary Blood SPECIMEN COLLECTED 12/26/24 17:43 Blood Culture - Preliminary Blood SPECIMEN COLLECTED A&P Assessment and plan (1) Hypertension: (2) Atrial fibrillation: (3) Diabetes mellitus: (4) Dehydration: (5) COVID-19: (6) Rhabdomyolysis: (7) Generalized weakness: (8) Falls: (9) Paratracheal lymphadenopathy: (10) PHAM (acute kidney injury): Plan Sepsis Criteria met with tachypnea tachycardia fever Related to COVID-19 Procalcitonin not high to warrant antibiotics at this point Requested CT chest without contrast DuoNeb, Decadron and remdesivir requested Acute hypoxia related to COVID-19: Currently on 2 L Quit smoking Paratracheal fullness status post biopsy by the ENT surgeon at [facility]: Will request records Patient does not use oxygen at home A-fib without RVR Continue Eliquis with AV nico blocking agent Patient takes low-dose Eliquis because he was experiencing epistaxis with 5 mg twice a day regimen Mild CHF exacerbation BNP is high Clinically no significant signs of fluid overload Requested echo to learn about ejection fraction: No active chest pain Mild muscle injury: Monitor CPK for now PHAM: Anticipate improvement with better hydration: Hold losartan Full code Consistent carb/cardiac diet Insulin sliding scale Requested physical therapy Patient lives alone PDMP PDMP Reviewed: Not Reviewed Attestations Medical Necessity Statement*: More than 2 midnights anticipated for management of COVID-19 related pneumonia and hypoxia Diagnoses Hypertension I10 Atrial fibrillation I48.91 Diabetes mellitus E11.9 Dehydration E86.0 COVID-19 U07.1 Rhabdomyolysis M62.82 Generalized weakness R53.1 Falls R29.6 Paratracheal lymphadenopathy R59.0 PHAM (acute kidney injury) N17.9
--- NOTE | 2024-12-26 21:48 | CTR_ITS ---
PROCEDURE INFORMATION: Exam: CT Chest Without Contrast; Diagnostic Exam date and time: 12/26/2024 10:46 PM Age: 79 years old Clinical indication: Shortness of breath; Additional info: Right paratracheal fullness TECHNIQUE: Imaging protocol: Diagnostic computed tomography of the chest without contrast. Radiation optimization: All CT scans at this facility use at least one of these dose optimization techniques: automated exposure control; mA and/or kV adjustment per patient size (includes targeted exams where dose is matched to clinical indication); or iterative reconstruction. COMPARISON: 1. CR (CHEST, ) 12/26/2024 5:[address] chest w con* [id number] 10/16/2020 12:24 AM RADIATION DOSE METRICS: Total DLP (mGy-cm): 548.47 FINDINGS: Thyroid: Mass effect on the upper trachea from an enlarged thyroid with a slit-like appearance. Small layering mucus in the lower trachea and left mainstem bronchus. Similar-appearing heterogeneous enlargement of the thyroid with multiple nodules resulting in mass-effect in the trachea. Substernal extension is again seen. The overall size and appearance has not significantly changed since 01/10/2023. Lungs: Mild central bronchial wall thickening. Scattered hypoventilatory changes throughout the lungs. No focal consolidation or generalized interstitial process. Calcified left lower lobe granuloma. Pleural spaces: Unremarkable. No pneumothorax. No pleural effusion. Heart: Unremarkable. No cardiomegaly. No pericardial effusion. Coronary arteries: Multivessel coronary artery calcifications most pronounced along the LAD. Lymph nodes: Similar mild enlargement of several mediastinal lymph nodes. For example, a right lower paratracheal node measures 1.1 cm short axis, previously 1.0 cm on 10/16/2020. A precarinal lymph node measures 1.1 cm, previously 1.2 cm. Left hilar calcified lymph nodes from prior granulomatous disease Vasculature: Moderate diffuse thoracic aortic calcifications without aneurysm. 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 Multilevel degenerative changes of the visualized spine. No acute or aggressive osseous lesion. Soft tissues: Unremarkable. CT/CT chest wo con [id number] IMPRESSION: 1. Similar multinodular goiter with heterogeneous enlargement of the thyroid resulting in mass effect on the trachea. If not performed previously, correlation with nonemergent thyroid ultrasound is recommended. 2. Mildly enlarged mediastinal lymph nodes are not significantly changed from 10/16/2020 and may be reactive. 3. Mild mucous secretions within the trachea and left mainstem bronchus. Central bronchial wall thickening.
[2024-12-26 21:52] LABS: Glucose Point of Care 110 mg/dL (70-110)
[2024-12-26 22:15] LABS: Thyroid Stimulating Hormone 0.53 uIU/mL (0.27-4.20)
--- OUTSIDE RECORDS SUMMARY | 2024-12-26 22:28 | XMS_ITS | Encounter Summary ---
Author Organization [facility] Address [address] [place] [address] Care Team Providers Care Insurance Assistant Name Role Phone Unavailable Primary Care Provider Unavailabl e Encounter Details Date Type Department Care Team (Latest Contact Info) Description 08/05/2005 Outpatient [facility] [address] [place] [phone] Yossi Strickland MD [address] [place] [phone] HYPERTENSION NOS (Primary Dx); HEMATURIA Social History Tobacco Use Types Packs/Day Years Used Date Smoking Tobacco: Never Assessed Sex and Gender Information Value Date Recorded Sex Assigned at Not on file 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
--- OUTSIDE RECORDS SUMMARY | 2024-12-26 22:28 | XMS_ITS | Encounter Summary ---
Author Organization [facility] Address [address] [place] [address] Care Team Providers Care Facilities Maintenance Worker Name Role Phone Unavailable Primary Care Provider Unavailabl e Encounter Details Date Type Department Care Team (Latest Contact Info) Description 09/02/[address] 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
--- OUTSIDE RECORDS SUMMARY | 2024-12-26 22:28 | XMS_ITS | Encounter Summary ---
Author Organization [facility] Address [address] [place] [address] Care Team Providers Care Corking Machine Operator Name Role Phone Unavailable Primary Care Provider Unavailabl e Encounter Details Date Type Department Care Team (Latest Contact Info) Description 07/05/2005 Outpatient Historical [facility] [address] [place] [phone] Yossi Strickland MD [address] [place] [phone] HYPERTENSION NOS (Primary Dx) Social History Tobacco Use Types Packs/Day Years Used Date Smoking Tobacco: Never Assessed Sex and Gender Information Value Date Recorded Sex Assigned at Not on file 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
--- OUTSIDE RECORDS SUMMARY | 2024-12-26 22:28 | XMS_ITS | Clinical Summary ---
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
--- OUTSIDE RECORDS SUMMARY | 2024-12-26 22:28 | XMS_ITS | Patient Health Record ---
Author Organization [facility] Address [address] [place] [address] Care Team Providers Care [employer] Name Role Phone Blayne Bolivar Unavailable [phone] Reason For Referral No Information Medications Medication SIG (Take, Route, Frequency, Duration) Notes Start Date End Date Status Metoprolol Tartrate 25 MG 1/2 tab(s) po q 12 hours Oral for 30 Metoprolol (Metoprolol) 25mg Tablet 1/2 tab(s) po q 12 hours #60 (Sixty) tablet(s) 9 10/13/18 Active metFORMIN HCl 1/2 tab p.o. bid for 30 *please review for potential update for e-prescription and drug interaction check* Metformin HCl 1,000mg Tablets, Extended Release 1/2 tab p.o. bid 2 10/13/18 Active Enalapril Maleate 20 MG Take 1 tablet(s) by mouth bid Oral for 30 Enalapril Maleate 20mg Tablet Take 1 tablet(s) by mouth bid #60 (Sixty) tablet(s) 9 10/13/18 Active hydroCHLOROthiazide 25 MG Take 1 tablet po q am Oral for 30 Hydrochlorothiazide (HCTZ) 25mg Tablet Take 1 tablet po q am 2 10/13/18 Active amLODIPine Besylate 5 MG Take 1/2 tab(s) by mouth qd Oral for 30 Amlodipine (Amlodipine ) 5mg Tablet Take 1/2 tab(s) by mouth qd #90 (Ninety) tablet(s) 2 10/13/18 Active Problems Problem Type SNOMED Code ICD Code Onset Dates Problem Status W/U Status Risk Notes Problem Hypertension (85869143) Hypertension (401.1) 12/18/19 Active confirmed [facility] [id number] 11- Problem Malignant hypertension (04927708) Malignant hypertension (401.0) 10/21/19 09 Active confirmed [id number] 11- Problem Essential hypertension (20447247) Essential hypertension (401.1) 10/11/20 09 Active confirmed [id number] 11- Problem Cough (56060212) Cough (786.2) 01/24/20 16 Problem resolved confirmed [id number] 11- Problem 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
[2024-12-26 23:28] LABS: Troponin 5 6HR 51.89 ng/L (0-15); Troponin 5 6HR Delta 3.89 ng/L (0-12)
--- NOTE | 2024-12-26 23:32 | ECG_ITS ---
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1945 Requested By: Anya Apple Order Number: [id number] Gonzales MD: SYLVESTER FRIEND Measurements Intervals [place] Rate: 98 P: 0 VA: 0 QRS: 23 QRSD: 103 T: 27 QT: 327 QTc: 419 Interpretive Statements ATRIAL FIBRILLATION INCOMPLETE RIGHT BUNDLE BRANCH BLOCK [90+ ms QRS DURATION, TERMINAL R IN V1/V2, 40+ ms S IN I/aVL/V4/V5/V6] ABNORMAL RHYTHM ECG Compared to ECG 12/26/2024 17:49:11 Incomplete right bundle-branch block now present Indeterminate axis no longer present Electronically Signed On 12-27-2024 18:16:38 CDT by SYLVESTER FRIEND [email or web address]
[2024-12-26 23:44] LABS: Free T4 Free Thyroxine 1.45 ng/dL (0.82-1.77)
[2024-12-27] VITALS (14 sets, daily range): BP systolic 110–139; BP diastolic 71–75; PULSE 80–103; RESP 16–18; TEMP 36.8–37.8; O2SAT 93–98
[2024-12-27] MEDS: ipratropium-albuterol 3 mL Neb INHALATION ×3 (00:14→20:40)
[2024-12-27 05:37] LABS: Basophils % 0.4 %; Eosinophils % 0.2 %; Hematocrit 38.1 % (37-53); Lymphocytes # 1.4 10^3/uL (0.8-4.8); Lymphocytes % 16.9 %; Mean Corpuscular HGB Conc 33.1 g/dL (30-55); Mean Corpuscular Volume 87.8 fl (82-101); Monocytes # 1.8 10^3/uL (0.2-0.9); Monocytes % 22.4 %; Neutrophils % 59.9 %; Nucleated Red Blood Cells % 0 %; Platelet Count 233 10^3/cmm (157-399); Red Blood Count 4.34 10^6/uL (3.85-5.65); Red Cell Distribution Width 14.6 % (12.1-15.1); White Blood Count 8.03 10^3/uL (3.29-11.43)
[2024-12-27 06:00] LABS: Anion Gap 14.1 (5-19); Blood Urea Nitrogen 24 mg/dL (8-23); C Reactive Protein 75.8 mg/L (0.0-4.9); Calcium 9.1 mg/dL (8.5-10.5); Carbon Dioxide 23 mmol/L (22-29); Chloride 103 mmol/L (98-107); Creatinine Clr Calc Pharmacy 51.7827; Glucose 110 mg/dL (65-115); Magnesium 1.8 mg/dL (1.7-2.3); Osmolality Calculated 287 mOsm/kg (285-295); Phosphorus 2.7 mg/dL (2.5-4.5); Potassium 4.1 mmol/L (3.5-5.1); Sodium 136 mmol/L (136-145)
[2024-12-27 06:10] LABS: Creatine Phosphokinase 4397 U/L (39-308)
[2024-12-27 06:19] LABS: Glucose Point of Care 105 mg/dL (70-110)
[2024-12-27] MEDS: sodium chloride 0.9% 1,000 ML 75 ML IV (06:22)
--- NOTE | 2024-12-27 07:17 | P.PN_ITS ---
Subjective 2 Subjective: IV fluids started secondary to worsening CPK Troponin fluctuating however no significant delta High inflammatory markers noted Patient has confusion, delirium Rodriguez catheter placed secondary to urinary retention Currently requiring 2 L of oxygen Will be redirectable Vitals/I&O/Wt Last Vital Signs Temp 98.7 F 12/27/24 03:39 Pulse 90 12/27/24 06:00 Resp 17 12/27/24 03:39 BP 138/72 12/27/24 03:39 Pulse Ox 94 12/27/24 03:39 O2 Del Method Nasal Cannula 12/27/24 03:39 O2 Flow Rate 2 12/27/24 03:39 12/26/24 12/27/24 12/27/24 22:59 06:59 14:59 Intake Total 1000 / 1000 750 / 1750 Output Total 400 / 400 Balance 1000 / 1000 350 / 1350 Weight last 48 hrs Weight 97.522 kg Weight 96.303 kg Weight 95.254 kg Data 12/27/24 04:57 12/27/24 04:57 Micro: Microbiology 12/26/24 17:50 Blood Culture - Preliminary Blood SPECIMEN COLLECTED 12/26/24 17:43 Blood Culture - Preliminary Blood SPECIMEN COLLECTED A&P PDMP PDMP Reviewed: Not Reviewed Coding Level of Care Code Acute Code for Chg Fwd
[2024-12-27] MEDS: remdesivir 200 MG in sodium chloride 0.9% (100 ml) 60 ML 100 MG IV (07:56)
[2024-12-27] MEDS: FUROsemide 20 mg Tablet PO (08:00)
[2024-12-27] MEDS: apixaban 5 mg Tablet 2.5 MG PO ×2 (08:01→17:35)
[2024-12-27] MEDS: tamsulosin 0.4 mg Capsule PO (08:01)
[2024-12-27] MEDS: dilTIAZem ER (24HR) 180 mg Capsule PO (08:01)
[2024-12-27] MEDS: amlodipine 10 mg Tablet PO (08:01)
[2024-12-27] MEDS: dexamethasone 4 mg Tablet 6 MG PO (08:01)
[2024-12-27] MEDS: potassium chloride ER 20 mEq Tablet PO (08:01)
[2024-12-27] MEDS: losartan 50 mg Tablet 100 MG PO (08:01)
[2024-12-27] MEDS: insulin glargine 100 units/1 mL 15 UNIT SUBCUT (08:02)
--- NOTE | 2024-12-27 09:54 | PC.CHAP ---
Pastoral Care Encounter/Spiritual Assessment Type of Contact [] Declined lead laying and gluing machine operator visit [] Patient/Family/Request visit [] Outpatient visit [] Follow-up visit [] Physician referral [] Code/Alert [x] Routine visit [] Staff referral [] Actively dying [] Patient sleeping [] Family support [] [] Out of room [] Palliative care [] [] Receiving care in room [] Pre-surgical visit [] Trauma [] Long length of stay [] ICU visit [] Other: Relational/Emotional Strength [] Patient feels connected with others/family/visitors/staff [] Distress [] Loneliness/isolation [] Abandonment Spirituality of Patient [] Person of Shanel [] Attends Scientologist of their Shanel [] Believes in Prayer [] Reads Bible or Congregational materials [] There are Spiritual issues to be addressed Phys Asst Interventions [x] Prayer [] Active listening [] Non-anxious presence [] Spiritual/emotional support [] Crisis/trauma care [] Spiritual counseling [] Bereavement support [] Provided bereavement packet [] Provided Bible/devotional materials [] Provided toy/stuffed animal, coloring book to patient or family member [] Provided Communion [] Anointing/[place] [] Salvation [] Completed spiritual assessment [] Other: Impact on Illness or Injury [] Angry [] Fearful [] Anxious [] Often cries [] Exhaustion [] Unable to work [] Unable to attend congregational [] Unable to walk/stand [] Unable to read [] Unable to drive [] Unable to eat/drink [] Unable to sleep [] Unable to be with family [] Patient intubated [] Other: Summary precaution Time spent with patient
[2024-12-27 11:28] LABS: Glucose Point of Care 160 mg/dL (70-110)
[2024-12-27] MEDS: insulin lispro 100 unit/1 mL SUBCUT ×3 (12:33→21:19)
[2024-12-27 16:13] LABS: Glucose Point of Care 245 mg/dL (70-110)
--- NOTE | 2024-12-27 17:00 | PM.PN ---
Subjective Subjective: Overnight labs and H&P reviewed. No acute interim events. CK at 4300 consistent with rhabdomyolysis. Medications: Reviewed: Yes Vitals/I&O/Wt Last Vital Signs Temp 98.2 F 12/27/24 16:00 Pulse 84 12/27/24 16:00 Resp 18 12/27/24 16:00 BP 110/71 12/27/24 16:00 Pulse Ox 97 12/27/24 16:00 O2 Del Method Nasal Cannula 12/27/24 16:00 O2 Flow Rate 2 12/27/24 11:18 12/27/24 12/27/24 12/27/24 06:59 14:59 22:59 Intake Total 750 / 1750 460 / 460 Output Total 400 / 400 600 / 600 Balance 350 / 1350 -140 / -140 Weight last 48 hrs Weight 97.522 kg Weight 96.303 kg Weight 95.254 kg Physical Exam Narrative: General: No acute distress, AO x3 HEENT: PERRLA, pupils bilaterally equal and reactive, pallors not present Chest: Normal vesicular breath sounds, no added sounds, equal good air entry bilaterally CVS: S1-S2 regular, no murmurs, no tachycardia, no gallops, no rubs Abdomen: Soft, nontender, no organomegaly, bowel sounds present Neuro: No focal deficits, no facial deformity, AO x3, power 5/5 in all limbs Data 12/27/24 04:57 12/27/24 04:57 Micro: Microbiology 12/26/24 17:50 Blood Culture - Preliminary Blood SPECIMEN COLLECTED 12/26/24 17:43 Blood Culture - Preliminary Blood SPECIMEN COLLECTED A&P Assessment and plan (1) Hypertension: (2) Atrial fibrillation: (3) Diabetes mellitus: (4) Dehydration: (5) COVID-19: (6) Rhabdomyolysis: (7) Generalized weakness: (8) Falls: (9) Paratracheal lymphadenopathy: (10) PHAM (acute kidney injury): Plan Sepsis Criteria met with tachypnea tachycardia fever Related to COVID-19 Procalcitonin not high to warrant antibiotics at this point Requested CT chest without contrast DuoNeb, Decadron and remdesivir requested Acute hypoxia related to COVID-19: Currently on 2 L Quit smoking Paratracheal fullness status post biopsy by the ENT surgeon at [facility]: Will request records Patient does not use oxygen at home A-fib without RVR Continue Eliquis with AV nico blocking agent Patient takes low-dose Eliquis because he was experiencing epistaxis with 5 mg twice a day regimen Mild CHF exacerbation BNP is high Clinically no significant signs of fluid overload Requested echo to learn about ejection fraction: No active chest pain Mild muscle injury: Monitor CPK for now PHAM: Anticipate improvement with better hydration: Hold losartan Full code Consistent carb/cardiac diet Insulin sliding scale Requested physical therapy Patient lives alone December 27, 2024 Continue treatment for COVID-19 with IV remdesivir, IV steroids. Noted to have rhabdomyolysis with CK at 4300. Continue IV hydration, monitor renal function and serial CK to assess for improvement. PDMP PDMP Reviewed: Not Reviewed Attestations Medical Necessity Statement*: COVID 19 infection, rhabdomyolysis needing IVF Coding Level of Care Code Acute Code for [facility] Fwd Diagnoses Hypertension I10 Atrial fibrillation I48.91 Diabetes mellitus E11.9 Dehydration E86.0 COVID-19 U07.1 Rhabdomyolysis M62.82 Generalized weakness R53.1 Falls R29.6 Paratracheal lymphadenopathy R59.0 PHAM (acute kidney injury) N17.9
[2024-12-27 21:23] LABS: Glucose Point of Care 191 mg/dL (70-110)
--- NOTE | 2024-12-27 21:30 | USCV_ITS ---
Abiel Roach Age: 79 Gender: M : 1945 Exam Date: 12/27/2024 09:38 Ordering Phys: Jose E Colvin MD Technologist: DANIELLE [place] [facility] [place]: chf BP: 140 / 80 HR: 86 Rhythm: Sinus Technical Quality: Adequate MEASUREMENTS (Male / Female) Normal Values 2D ECHO LV Diastolic Diameter PLAX 3.7 cm 4.2 - 5.9 / 3.9 - 5.3 cm IVS Diastolic Thickness 1.1 cm 0.6 - 1.0 / 0.6 - 0.9 cm IVS Systolic Thickness 1.8 cm LVPW Diastolic Thickness 1.1 cm 0.6 - 1.0 / 0.6 - 0.9 cm LVPW Systolic Thickness 1.6 cm LVOT Diameter 2.0 cm LV Ejection Fraction 2D Teich 57.5 % LV Ejection Fraction MOD 4C 72.4 % LV Ejection Fraction MOD 2C 54.8 % LV Ejection Fraction 2C AL 53.7 % LA Diameter 3.9 cm RA Systolic Volume 4C AL 36.6 ml RA Systolic Volume 4C MOD 35.4 ml LA Sys Volume AL 69.6 cm cubed LA Sys Volume Index AL 31.4 cm cubed/m squared Aorta at Sinotubular Diameter 2.6 cm IVC Diameter 2.3 cm M-MODE LA Ao Ratio MM 1.3 AV Cusp Separation MM 1.9 cm DOPPLER AV Peak Velocity 130.0 cm/s AV Area Cont Eq vti 2.6 cm squared AV Area Cont Eq pk 2.3 cm squared MV Peak Velocity 130.0 cm/s MV Area PHT 4.3 cm squared Mitral E to A Ratio 3.1 TR Peak Velocity 127.0 cm/s TR Peak Gradient 6.5 mmHg TV Peak E Velocity 88.0 cm/s PV Peak Velocity 104.0 cm/s FINDINGS Left Ventricle Normal left ventricular size and systolic function, EF 60%.no regional wall motion abnormalities. Right Ventricle Normal right ventricular size and systolic function. Right Atrium Mildly increased right atrial size. Left Atrium Mildly increased left atrial size. Mitral Valve Mild mitral annular calcification. Aortic Valve Thickened aortic valve. Tricuspid Valve Trace tricuspid valve regurgitation. Pulmonic Valve Pulmonic valve not well visualized. Pericardium Normal pericardium without effusion. Aorta Normal ascending aorta dimension. IVC Normal inferior vena cava. CONCLUSIONS Normal left ventricular size and systolic function, EF 60%.no regional wall motion abnormalities. Mild biatrial enlargement Mild mitral annular calcification. Thickened aortic valve. Trace tricuspid valve regurgitation. There is no pericardial effusion. There are no intracardiac masses. No similar previous studies are available for comparison Dr Francesco Gallagher MD FAC (Electronically Signed) Final Date: 27 December 2024 21:43 S
[2024-12-28] VITALS (9 sets, daily range): BP systolic 130–159; BP diastolic 72–80; PULSE 70–89; RESP 16–20; TEMP 36.3–36.7; O2SAT 95–98
[2024-12-28 07:14] LABS: Glucose Point of Care 166 mg/dL (70-110)
[2024-12-28] MEDS: insulin glargine 100 units/1 mL 15 UNIT SUBCUT (08:37)
[2024-12-28] MEDS: remdesivir 100 MG in sodium chloride 0.9% (100 ml) 80 ML IV (08:37)
[2024-12-28] MEDS: insulin lispro 100 unit/1 mL SUBCUT ×2 (08:38→12:28)
[2024-12-28] MEDS: dexamethasone 4 mg Tablet 6 MG PO (08:38)
[2024-12-28] MEDS: losartan 50 mg Tablet 100 MG PO (08:38)
[2024-12-28] MEDS: amlodipine 10 mg Tablet PO (08:38)
[2024-12-28] MEDS: tamsulosin 0.4 mg Capsule PO (08:38)
[2024-12-28] MEDS: dilTIAZem ER (24HR) 180 mg Capsule PO (08:38)
[2024-12-28] MEDS: apixaban 5 mg Tablet 2.5 MG PO (08:39)
[2024-12-28] MEDS: FUROsemide 20 mg Tablet PO (08:39)
[2024-12-28] MEDS: potassium chloride ER 20 mEq Tablet PO (08:41)
--- NOTE | 2024-12-28 10:16 | PC.CHAP ---
Pastoral Care Encounter/Spiritual Assessment Type of Contact [] Declined fireworks display specialist visit [] Patient/Family/Request visit [] Outpatient visit [] Follow-up visit [] Physician referral [] Code/Alert [] Routine visit [] Staff referral [] Actively dying [] Patient sleeping [] Family support [] [] Out of room [] Palliative care [] [] Receiving care in room [] Pre-surgical visit [] Trauma [] Long length of stay [] ICU visit [x] Other:Contact precautions. No visit. Relational/Emotional Strength [] Patient feels connected with others/family/visitors/staff [] Distress [] Loneliness/isolation [] Abandonment Spirituality of Patient [] Person of Shanel [] Attends Confucianism of their Shanel [] Believes in Prayer [] Reads Bible or Orthodoxy materials [] There are Spiritual issues to be addressed Director Medical Writing Interventions [] Prayer [] Active listening [] Non-anxious presence [] Spiritual/emotional support [] Crisis/trauma care [] Spiritual counseling [] Bereavement support [] Provided bereavement packet [] Provided Bible/devotional materials [] Provided toy/stuffed animal, coloring book to patient or family member [] Provided Communion [] Anointing/[place] [] Salvation [] Completed spiritual assessment [] Other: Impact on Illness or Injury [] Angry [] Fearful [] Anxious [] Often cries [] Exhaustion [] Unable to work [] Unable to attend rastafarian [] Unable to walk/stand [] Unable to read [] Unable to drive [] Unable to eat/drink [] Unable to sleep [] Unable to be with family [] Patient intubated [] Other: Summary Time spent with patient
[2024-12-28 10:28] LABS: Basophils % 0.1 %; Eosinophils % 0.4 %; Hematocrit 41.6 % (37-53); Lymphocytes # 0.9 10^3/uL (0.8-4.8); Lymphocytes % 10.8 %; Mean Corpuscular Hemoglobin 28.5 pg (27-33); Mean Corpuscular Volume 89.1 fl (82-101); Mean Platelet Volume 9.5 fL (7.4-10.4); Monocytes # 0.7 10^3/uL (0.2-0.9); Monocytes % 8.8 %; Neutrophils # 6.71 10^3/uL (1.8-7.7); Neutrophils % 79.4 %; Nucleated Red Blood Cells % 0 %; Platelet Count 270 10^3/cmm (157-399); Red Blood Count 4.67 10^6/uL (3.85-5.65); Red Cell Distribution Width 14.2 % (12.1-15.1); White Blood Count 8.44 10^3/uL (3.29-11.43)
[2024-12-28 10:45] LABS: Alanine Aminotransferase 38 U/L (0-41); Albumin Level 3.5 g/dL (3.5-5.2); Alkaline Phosphatase 52 U/L (40-130); Anion Gap 17.5 (5-19); Aspartate Amino Transferase 82 U/L (0-40); Blood Urea Nitrogen 29 mg/dL (8-23); Calcium 9.4 mg/dL (8.5-10.5); Carbon Dioxide 21 mmol/L (22-29); Chloride 105 mmol/L (98-107); Creatinine Clr Calc Pharmacy 72.3728; Globulin 2.7 g/dL (1.3-4.6); Glucose 254 mg/dL (65-115); Osmolality Calculated 302 mOsm/kg (285-295); Potassium 4.5 mmol/L (3.5-5.1); Sodium 139 mmol/L (136-145); Total Bilirubin 0.2 mg/dL (0.15-1.2); Total Protein 6.2 g/dL (6.6-8.7)
[2024-12-28 11:23] LABS: Creatine Phosphokinase 3171 U/L (39-308)
[2024-12-28 11:25] LABS: Glucose Point of Care 200 mg/dL (70-110)
--- NOTE | 2024-12-28 12:48 | PC.NURSE ---
Discharge Note Patient discharged to home via private vehicle accompanied by son and daughter in law. Discharge instructions reviewed with patient and/or manufacturer representative. Mobile pharmacy medications and/or prescriptions provided. Belongings/home medications returned. Instructed patient to stop flomax while on Paxlovid and wrote a note on the top of the paper, but unsure if patient will follow these instructions. IV removed and telemetry discontinued.
--- NOTE | 2024-12-28 14:35 | PM.DCS ---
Discharge Providers Date of Admission: 12/26/24 19:24 Date of Discharge: December 28, 2024 Attending Provider at Admission: Jose E Colvin MD Attending Provider at Discharge: Sherry Goel MD Primary Care Provider: Kelly Sheppard APRN Diagnoses at Discharge Discharge Diagnosis (1) Hypertension: Status: Acute (2) Atrial fibrillation: Status: Acute (3) Diabetes mellitus: Status: Acute (4) Dehydration: Status: Acute (5) COVID-19: Status: Acute (6) Rhabdomyolysis: Status: Acute (7) Generalized weakness: Status: Acute (8) Falls: Status: Acute (9) Paratracheal lymphadenopathy: Status: Acute (10) PHAM (acute kidney injury): Status: Acute Reason for Visit Reason for Visit: weakness; fall Hospital Course Hospital Course 79 year old male with established history of hypertension, atrial fibrillation chronic anticoagulation, follows up with cardiology, presented with generalized weakness and fatigue. He reported being sick for the last 3 to 4 days prior to admission. He was extremely weak and lethargic and fell to the floor. Typically he is awake alert and oriented and able to perform all ADLs independently. In the ER he tested positive for COVID-19 infection. He had new oxygen requirement at 2 L/min. He was admitted to the hospital for management of COVID-19 pneumonia. He received treatment with remdesivir and dexamethasone. He was also found to have evidence of rhabdomyolysis with elevated CK at 4300. He received IV hydration with normal saline. Over the next day CK was downtrending in the 3000 range. He is instructed to drink plenty of fluids at home over the next 2 to 3 days. He was able to be weaned off of oxygen. Room air saturation at rest today was at 97%, improving to 95% at the time of discharge. Physical therapy evaluation was performed and patient exhibited independence. He was only a standby assist. Since he is overall clinically improved, he was discharged in stable condition today. Instructed to take Paxlovid over the next 3 days for continued treatment of COVID-19. Instructed to stop Flomax for 3 days while he is on Paxlovid due to noted drug interaction and the combination being contraindicated. He is to resume Flomax once he completes Paxlovid.Additionally ordered for oral dexamethasone. over the next [address] of his chest showed a multinodular goiter with heterogeneous enlargement of the thyroid resulting in mass effect of the trachea. Patient already follows with ENT for the same. TSH was normal at 0.53. Lungs did not show any consolidation. Physical Exam Narrative: General: No acute distress, AO x3 HEENT: PERRLA, pupils bilaterally equal and reactive, pallors not present Chest: Normal vesicular breath sounds, no added sounds, equal good air entry bilaterally CVS: S1-S2 regular, no murmurs, no tachycardia, no gallops, no rubs Abdomen: Soft, nontender, no organomegaly, bowel sounds present Neuro: No focal deficits, no facial deformity, AO x3, power 5/5 in all limbs Discharge Data Studies Completed and Pending Completed Studies During Hospitalization Category Date Time Status CT chest wo con [id number] Routine Cat Scan 12/26/24 21:48 Completed XR chest 1V portable [id number] Stat Exams 12/26/24 17:31 Completed CV. echo complete* [id number] Routine Ultrasound 12/27/24 21:30 Completed Pending at discharge Category Date Time Status Blood Culture Stat Lab 12/26/24 17:50 Results Radiology Impressions Chest X-Ray 12/26/24 17:31 IMPRESSION: No acute cardiopulmonary findings. Chest CT 12/26/24 21:48 IMPRESSION: 1. Similar multinodular goiter with heterogeneous enlargement of the thyroid resulting in mass effect on the trachea. If not performed previously, correlation with nonemergent thyroid ultrasound is recommended. 2. Mildly enlarged mediastinal lymph nodes are not significantly changed from 10/16/2020 and may be reactive. 3. Mild mucous secretions within the trachea and left mainstem bronchus. Central bronchial wall thickening. Laboratory Results WBC 8.44 10^3/uL (3.29-11.43) 12/28/24 10:20 RBC 4.67 10^6/uL (3.85-5.65) 12/28/24 10:20 Hgb 13.30 g/dL (11.27-16.99) 12/28/24 10:20 Hct 41.6 % (37-53) 12/28/24 10:20 MCV 89.1 fl (82-101) 12/28/24 10:20 MCH 28.5 pg (27-33) 12/28/24 10:20 MCHC 32.0 g/dL (30-55) 12/28/24 10:20 RDW 14.2 % (12.1-15.1) 12/28/24 10:20 Plt Count 270 10^3/cmm (157-399) 12/28/24 10:20 MPV 9.5 fL (7.4-10.4) 12/28/24 10:20 Neut % (Auto) 79.4 % 12/28/24 10:20 Lymph % (Auto) 10.8 % 12/28/24 10:20 Schleicher % (Auto) 8.8 % 12/28/24 10:20 Eos % (Auto) 0.4 % 12/28/24 10:20 Baso % (Auto) 0.1 % 12/28/24 10:20 Neut # (Auto) 6.71 10^3/uL (1.8-7.7) 12/28/24 10:20 Lymph # (Auto) 0.9 10^3/uL (0.8-4.8) 12/28/24 10:20 Schleicher # (Auto) 0.7 10^3/uL (0.2-0.9) 12/28/24 10:20 Eos # (Auto) 0.0 10^3/uL (0.0-0.8) 12/28/24 10:20 Baso # (Auto) 0.0 10^3/uL (0.0-0.1) 12/28/24 10:20 Nucleated RBC % (auto) 0 % 12/28/24 10:20 Nucleated RBCs # 0.0 /100WBC 12/28/24 10:20 Specimen Type Arterial 12/26/24 17:31 Sample Site Radial, left 12/26/24 17:31 ABG pH 7.43 (7.35-7.45) 12/26/24 17:31 ABG pCO2 37.0 mmHg (35-45) 12/26/24 17:31 ABG pO2 65.5 mmHg (80.0-100.0) L 12/26/24 17:31 ABG PO2/FiO2 Ratio 311 12/26/24 17:31 ABG HCO3 24.6 mmol/L (22-26) 12/26/24 17:31 ABG O2 Saturation 93.9 12/26/24 17:31 ABG Base Excess 0.6 mmol/L (-2.0-2.0) 12/26/24 17:31 Berto Test Pos 12/26/24 17:31 A-a O2 Gradient 4.9 mmHg (5-10) L 12/26/24 17:31 Hematocrit 42.1 % (42-52) 12/26/24 17:31 Hgb O2 Saturation 91.9 % (95-100) L 12/26/24 17:31 Carboxyhemoglobin 1.0 %THgb (0.4-20.1) 12/26/24 17:31 Methemoglobin 1.1 % (0.4-1.5) 12/26/24 17:31 Total Hemoglobin 13.8 g/dL (14-18) L 12/26/24 17:31 Sodium 135.0 mmol/L (131-143) 12/26/24 17:31 Potassium 4.3 mmol/L (3.5-5.0) 12/26/24 17:31 Glucose 178.0 mg/dL (70-115) H 12/26/24 17:31 Ionized Calcium 1.3 mmol/L (1.1-1.4) 12/26/24 17:31 O2 Delivery Device Room air 12/26/24 17:31 FiO2 21.0 % 12/26/24 17:31 Hypo Dipper ID Walci 12/26/24 17:31 Sodium 139 mmol/L (136-145) 12/28/24 10:20 Potassium 4.5 mmol/L (3.5-5.1) 12/28/24 10:20 Chloride 105 mmol/L (98-107) 12/28/24 10:20 Carbon Dioxide 21 mmol/L (22-29) L 12/28/24 10:20 Anion Gap 17.5 (5-19) 12/28/24 10:20 BUN 29 mg/dL (8-23) H 12/28/24 10:20 Creatinine 1.0 mg/dL (0.7-1.2) 12/28/24 10:20 GFR Calculation Not Reportable 12/28/24 10:20 Glucose 254 mg/dL (65-115) H 12/28/24 10:20 POC Glucose 200 mg/dL (70-110) H 12/28/24 11:13 Calculated Osmolality 302 mOsm/kg (285-295) H 12/28/24 10:20 Lactic Acid 1.6 mmol/L (0.5-2.2) 12/26/24 17:43 Calcium 9.4 mg/dL (8.5-10.5) 12/28/24 10:20 Phosphorus 2.7 mg/dL (2.5-4.5) 12/27/24 04:57 Magnesium 1.8 mg/dL (1.7-2.3) 12/27/24 04:57 Total Bilirubin 0.2 mg/dL (0.15-1.2) 12/28/24 10:20 AST 82 U/L (0-40) H 12/28/24 10:20 ALT 38 U/L (0-41) 12/28/24 10:20 Alkaline Phosphatase 52 U/L (40-130) 12/28/24 10:20 Creatine Kinase 3171 U/L (39-308) H* 12/28/24 10:20 Troponin T Baseline 48 ng/L (0-15) H 12/26/24 17:43 Troponin T 120 Minute 40.35 ng/L (0-15) H 12/26/24 19:27 Delta Troponin T -7.65 ABS# (0-10) L 12/26/24 19:27 Troponin T Hi Sens 6Hr 51.89 ng/L (0-15) H 12/26/24 23:06 Troponin T Hi Sens 6Hr Delta 3.89 ng/L (0-12) 12/26/24 23:06 C-Reactive Protein 75.8 mg/L (0.0-4.9) H 12/27/24 04:57 NT-Pro-B Natriuret Pep 879 pg/mL (0-450) H 12/26/24 17:43 Total Protein 6.2 g/dL (6.6-8.7) L 12/28/24 10:20 Albumin 3.5 g/dL (3.5-5.2) 12/28/24 10:20 Globulin 2.7 g/dL (1.3-4.6) 12/28/24 10:20 Procalcitonin 0.32 ng/mL (0-0.5) 12/26/24 17:43 TSH 0.53 uIU/mL (0.27-4.20) 12/26/24 17:42 Free T4 1.45 ng/dL (0.82-1.77) 12/26/24 17:42 Urine Color Yellow (Yellow) 12/26/24 19:08 Urine Appearance Clear (CLEAR) 12/26/24 19:08 Urine pH 5.0 (5-7) 12/26/24 19:08 Ur Specific Cascade 1.016 (1.005-1.030) 12/26/24 19:08 Urine Protein 3+ (Negative) A 12/26/24 19:08 Urine Glucose (UA) Negative (Normal) 12/26/24 19:08 Urine Ketones 1+ (Negative) H 12/26/24 19:08 Urine Blood 2+ (Negative) A 12/26/24 19:08 Urine Nitrate Negative (Negative) 12/26/24 19:08 Urine Bilirubin Negative (Negative) 12/26/24 19:08 Urine Urobilinogen 0.2 mg/dL (Negative) 12/26/24 19:08 Ur Leukocyte Esterase Negative (Negative) 12/26/24 19:08 Urine RBC 0-2 /hpf (0-2) 12/26/24 19:08 Urine WBC 0-5 /hpf (0-5) 12/26/24 19:08 Ur Squamous Epith Cells 0-5 /hpf (0-5) 12/26/24 19:08 Amorphous Sediment Not Reportable 12/26/24 19:08 Urine Bacteria None seen /hpf (NONE) 12/26/24 19:08 Hyaline Casts 8.26 /lpf 12/26/24 19:08 Influenza A (PCR) Negative (Negative) 12/26/24 18:16 Influenza Type B (PCR) Negative (Negative) 12/26/24 18:16 RSV (PCR) Negative (Negative) 12/26/24 18:16 SARS-CoV-2 (PCR) Positive (Negative) A 12/26/24 18:16 Vitals Last Vital Signs Temp 97.4 F L 12/28/24 12:44 Pulse 89 12/28/24 12:44 Resp 18 12/28/24 12:44 BP 154/75 12/28/24 12:44 Pulse Ox 98 12/28/24 12:44 O2 Del Method Room Air 12/28/24 11:24 O2 Flow Rate 1 12/28/24 09:10 Discharge Plan Discharge Patient Disposition: Home Health Service Condition: Stable Prescriptions: New dexamethasone 4 mg Tablet 6 mg PO DAILY 5 Days Qty: 10 0RF Paxlovid 300 mg (150 mg x 2)-100 mg tablets,dose pack See Rx Instructions .ROUTE .COMPLEX 3 Days Qty: 30 0RF Rx Instructions: take TWO 150 mg tablets of nirmatrelvir with ONE 100 mg tablet of ritonavir twice daily for 5 days Continued albuterol sulfate [ProAir HFA] 90 mcg/actuation HFA aerosol inhaler 2 puff inhalation QID PRN (Reason: shortness of breath or wheezing) Qty: 18 0RF (DME) Diabetic Shoes with insoles See Rx Instructions .Route .MEDSUPPLY Qty: 1 0RF Rx Instructions: As directed by [facility] insulin glargine 100 unit/mL (3 mL) insulin pen 16 unit SUBCUT QAM diltiazem HCl 180 mg capsule,extended release 24 hr 180 mg PO DAILY furosemide [Lasix] 20 mg tablet 20 mg PO DAILY potassium chloride 20 mEq tablet,ER particles/crystals 20 meq PO DAILY gabapentin 100 mg capsule 100 mg PO BID ascorbic acid (vitamin C) 1,000 mg tablet 1 g PO DAILY cholecalciferol (vitamin D3) 50 mcg (2,000 unit) capsule 50 mcg PO DAILY losartan 100 mg tablet 100 mg PO DAILY amlodipine 10 mg tablet 10 mg PO DAILY Qty: 90 3RF Eliquis 5 mg tablet 2.5 mg PO BID Qty: 180 3RF Held tamsulosin [Flomax] 0.4 mg capsule 0.4 mg PO DAILY Hold Instructions: Resume on 12/30/24. hold until last dose of PAxlovid Discharge Orders: Discharge Order (Routine); Ordered 12/28/24 Ordered By: Sherry Goel Referrals: [facility]) [Outside] Kelly Sheppard APRN [Primary Care Provider] - 12/29/24 2:00 pm Discharge Diet: Usual diet Discharge Activity: Resume usual activity Patient Instructions: Dexamethasone (By mouth), Nirmatrelvir/Ritonavir (By mouth), Acute Kidney Injury (GEN), COVID-19 (Coronavirus Disease 2019) (GEN), Opioid Safety Activity Restrictions/Additional Instructions: Take Paxlovid antiviral medicine for 3 days Then stop. Do not take Flomax/tamsulosin for the 3 days that you are taking Paxlovid. Resume on day 4 once complete paxlovid course. Paxlovid can increase the effect of Flomax and the combination is not recommended Discharge Attestations Time Spent in Discharge Care*: greater than 30 min Quality Metrics Clinical Quality Measures [ No reported AMI, CVA or VTE this stay] Coding Level of Care Code Acute Code for [facility] Fwd Diagnoses Hypertension I10 Atrial fibrillation I48.91 Diabetes mellitus E11.9 Dehydration E86.0 COVID-19 U07.1 Rhabdomyolysis M62.82 Generalized weakness R53.1 Falls R29.6 Paratracheal lymphadenopathy R59.0 PHAM (acute kidney injury) N17.9
== END 2024-12-28 12:55 | disposition home health service (06) | DRG 871 ==
LOC: ER 19:51 → MEDSURG 20:19
PROVIDERS: Admitting Provider Internal Medicine; Emergency Provider Emergency Medicine; PCP Nurse Practitioner Family; Visit Provider Student in an Organized Health Care Education/Training Program
DX: A41.9 Sepsis, unspecified organism (principal); J12.82 Pneumonia due to coronavirus disease 2019; U07.1 COVID-19; M62.82 Rhabdomyolysis; N17.9 Acute kidney failure, unspecified; I10 Essential (primary) hypertension; I48.91 Unspecified atrial fibrillation; E11.9 Type 2 diabetes mellitus without complications; E86.0 Dehydration; R29.6 Repeated falls; R59.0 Localized enlarged lymph nodes; Z79.01 Long term (current) use of anticoagulants; E04.2 Nontoxic multinodular goiter; Z79.4 Long term (current) use of insulin; Z87.891 Personal history of nicotine dependence; R09.02 Hypoxemia
CPT/HCPCS: 36415; 36416; 36600; 71045; 71250; 80048; 80051; 80053; 81001; 82330; 82550; 82805; 82962; 83605; 83735; 83880; 84100; 84145; 84439; 84443; 84484; 85025; 86140; 87040; 87637; 93005; 93306; 94640; 94760; 96372; 97161; 99285; J0248; J1815; J7030; J8540; J9999

== ENCOUNTER 2025-01-05 11:22 | Outpatient (CLI) | payer OTHER, MEDICARE, SELFPAY ==
[2025-01-05 11:43] LABS: Basophils % 0.2 %; Eosinophils # 0.2 10^3/uL (0.0-0.8); Eosinophils % 1.1 %; Hematocrit 42.7 % (37-53); Lymphocytes # 2.6 10^3/uL (0.8-4.8); Lymphocytes % 18.7 %; Mean Corpuscular HGB Conc 33.3 g/dL (30-55); Mean Corpuscular Hemoglobin 28.3 pg (27-33); Mean Corpuscular Volume 85.2 fl (82-101); Mean Platelet Volume 10.5 fL (7.4-10.4); Monocytes # 1.3 10^3/uL (0.2-0.9); Monocytes % 9.3 %; Neutrophils # 9.63 10^3/uL (1.8-7.7); Neutrophils % 68.6 %; Nucleated Red Blood Cells % 0 %; Platelet Count 381 10^3/cmm (157-399); Red Blood Count 5.01 10^6/uL (3.85-5.65); White Blood Count 14.04 10^3/uL (3.29-11.43)
== END 2025-01-05 11:23 | disposition home or self-care (01) ==
LOC: LAB 11:25
PROVIDERS: PCP Nurse Practitioner Family; Visit Provider Nurse Practitioner Family
DX: U07.1 COVID-19 (principal)
CPT/HCPCS: 85025

== ENCOUNTER → 2025-02-24 10:48 | Outpatient (BNVA) | payer OTHER, SELFPAY | PROVIDERS: PCP Nurse Practitioner Family; Visit Provider Podiatrist Foot & Ankle Surgery | DX: E11.42 Type 2 diabetes mellitus with diabetic polyneuropathy (principal); B35.1 Tinea unguium; L84 Corns and callosities; M25.471 Effusion, right ankle; M25.472 Effusion, left ankle; I73.9 Peripheral vascular disease, unspecified; Z79.4 Long term (current) use of insulin | CPT/HCPCS: 11056; 11721; 99213 ==

== ENCOUNTER → 2025-04-28 11:22 | Outpatient (BNVA) | payer OTHER, SELFPAY | PROVIDERS: PCP Nurse Practitioner Family; Visit Provider Podiatrist Foot & Ankle Surgery | DX: E11.42 Type 2 diabetes mellitus with diabetic polyneuropathy (principal); B35.1 Tinea unguium; M25.471 Effusion, right ankle; M25.472 Effusion, left ankle; I73.9 Peripheral vascular disease, unspecified; Z79.4 Long term (current) use of insulin | CPT/HCPCS: 11721 ==

== ENCOUNTER → 2025-07-13 11:19 | Outpatient (BNVA) | payer OTHER, SELFPAY | PROVIDERS: PCP Nurse Practitioner Family; Visit Provider Podiatrist Foot & Ankle Surgery | DX: E11.42 Type 2 diabetes mellitus with diabetic polyneuropathy (principal); B35.1 Tinea unguium; I73.9 Peripheral vascular disease, unspecified; E11.8 Type 2 diabetes mellitus with unspecified complications; M25.471 Effusion, right ankle; M25.472 Effusion, left ankle; Z79.4 Long term (current) use of insulin | CPT/HCPCS: 11721; 99213 ==

== ENCOUNTER 2025-07-25 10:47 | Outpatient (CLI) | payer OTHER, SELFPAY ==
--- NOTE | 2025-07-25 11:00 | USR_ITS ---
PROCEDURE INFORMATION: Exam: US Duplex Bilateral Lower Extremity Arteries Exam date and time: 07/25/2025 11:00 AM Age: 80 years old Clinical indication: Condition or disease; Peripheral vascular disease; Additional info: Pad TECHNIQUE: Imaging protocol: Real-time ultrasound scan of the arteries of the bilateral lower extremities with 2-D brock scale, color Doppler flow and spectral waveform analysis. Images documented and saved. COMPARISON: CT abdomen pelvis wo/w [id number] 04/17/2021 11:10 AM FINDINGS: Right: Iliac artery: 95 cm/sec. Triphasic waveform. Common femoral artery: 86 cm/sec. Triphasic waveform. Proximal superficial femoral artery: 117 cm/sec. Triphasic waveform. Mid superficial femoral artery: 194 cm/sec. Triphasic waveform. Distal superficial femoral artery: 95 cm/sec. Biphasic waveform Popliteal artery: 68 cm/sec. Biphasic waveform. Posterior tibial artery: 32 cm/sec. Biphasic waveform. Dorsalis pedis artery: 89 cm/sec. Biphasic waveform. Ankle-brachial index: 0.82 Left: Iliac artery: 89 cm/sec. Biphasic waveform. Common femoral artery: 107 cm/sec. Biphasic waveform. Proximal superficial femoral artery: 115 cm/sec. Biphasic waveform. Mid superficial femoral artery: 111 cm/sec. Biphasic waveform. Distal superficial femoral artery: 147 cm/sec. Biphasic waveform Popliteal artery: 76 cm/sec. Biphasic waveform. Posterior tibial artery: 69 cm/sec. Biphasic waveform. Dorsalis pedis artery: 140 cm/sec. Biphasic waveform. Ankle-brachial index: 0.88 US/CV arterial duplex [facility] [id number] IMPRESSION: Mild bilateral lower extremity PVD without significant stenosis.
== END 2025-07-25 10:48 | disposition home or self-care (01) ==
LOC: RAD 10:47
PROVIDERS: PCP Nurse Practitioner Family; Visit Provider Podiatrist Foot & Ankle Surgery
DX: I73.9 Peripheral vascular disease, unspecified (principal)
CPT/HCPCS: 93925

== ENCOUNTER → 2025-09-21 08:48 | Outpatient (BNVA) | payer OTHER, SELFPAY | PROVIDERS: PCP Nurse Practitioner Family; Visit Provider Nurse Practitioner Family | DX: I10 Essential (primary) hypertension (principal); I48.91 Unspecified atrial fibrillation; Z79.01 Long term (current) use of anticoagulants | CPT/HCPCS: 99214 ==

== ENCOUNTER → 2025-09-28 13:07 | Outpatient (BNVA) | payer OTHER, SELFPAY | PROVIDERS: PCP Nurse Practitioner Family; Visit Provider Podiatrist Foot & Ankle Surgery | DX: E11.8 Type 2 diabetes mellitus with unspecified complications (principal); B35.1 Tinea unguium; E11.42 Type 2 diabetes mellitus with diabetic polyneuropathy; M25.471 Effusion, right ankle; M25.472 Effusion, left ankle; I73.9 Peripheral vascular disease, unspecified | CPT/HCPCS: 11721; 99213 ==